=== PATIENT | female | born 1940 | race Caucasian/White ===

== ENCOUNTER 2017-12-28 09:48 | Emergency (ER) | payer OTHER, MEDICARE, SELFPAY ==
[2017-12-28 10:01] VITALS: BP 203/86; PULSE 80; RESP 15; TEMP 37; O2SAT 97
[2017-12-28 10:07] VITALS: BP 200/80; BP 203/85; PULSE 76; RESP 14
--- NOTE | 2017-12-28 10:08 | PC.NURSE ---
Pt complains of on / off generalized discomfort. No current complaints.
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
[2017-12-28 10:42] VITALS: BP 173/74; PULSE 74; RESP 14
== END 2017-12-28 11:02 | disposition home or self-care (01) ==
PROVIDERS: Emergency Provider Emergency Medicine
DX: S22.39XA Fracture of one rib, unspecified side, initial encounter for closed fracture (principal); S00.33XA Contusion of nose, initial encounter; I16.9 Hypertensive crisis, unspecified; V89.2XXA Person injured in unspecified motor-vehicle accident, traffic, initial encounter
CPT/HCPCS: 71101; 99283

== ENCOUNTER 2018-01-11 08:46 | Emergency (ER) | payer OTHER, SELFPAY ==
[2018-01-11 08:57] VITALS: BP 127/54; PULSE 60; RESP 13; TEMP 36.6; O2SAT 97
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
== END 2018-01-11 09:44 | disposition home or self-care (01) ==
PROVIDERS: Emergency Provider Emergency Medicine
DX: S22.41XD Multiple fractures of ribs, right side, subsequent encounter for fracture with routine healing (principal); V49.60XD Unspecified car occupant injured in collision with unspecified motor vehicles in traffic accident, subsequent encounter
CPT/HCPCS: 99282

== ENCOUNTER → 2018-04-26 14:07 | Outpatient (CLI) | payer OTHER, SELFPAY ==
[2018-04-26 14:20] LABS: RBC Urine None Seen (0-5/HPF)
[2018-04-26 14:48] LABS: Appearance Urine UA CLEAR; Bilirubin Urine UA NEGATIVE (NEGATIVE); Color Urine UA YELLOW; Glucose Urine UA NEGATIVE (Normal); Ketones Urine UA NEGATIVE (NEGATIVE); Leukocyte Esterase Urine UA TRACE (NEGATIVE); Nitrite Urine UA NEGATIVE (Negative); Occult Blood Urine UA NEGATIVE (Negative); Protein Urine UA NEGATIVE (Negative); Urobilinogen Urine UA 0.2 E.U./dL (0.2)
[2018-04-26 15:03] LABS: Amorphous Sediment Urine 1+; Bacteria Urine Few (2-10); Squamous Epithelial Cell Urine 0-1 /HPF; WBC Urine 5-10/HPF (0-5/HPF)
[2018-04-26 15:04] LABS: Culture Indicated Urine Specimen Cultured
== END ==
PROVIDERS: Visit Provider Surgery
DX: N34.3 Urethral syndrome, unspecified (principal); R30.0 Dysuria; R35.0 Frequency of micturition
CPT/HCPCS: 81001; 87086

== ENCOUNTER 2019-09-28 01:05 | Emergency (ER) | payer OTHER, SELFPAY ==
[2019-09-28 01:10] VITALS: BP 186/86; PULSE 85; RESP 15; TEMP 36.6; O2SAT 98
--- NOTE | 2019-09-28 02:47 | ED_ITS ---
HPI - Skin/Abscess/Foreign Bdy General Chief complaint: Skin/Abscess/Foreign Body Stated complaint: fibromyalgia nerve pain Time Seen by Provider: 09/28/19 02:43 Source: patient and family Mode of arrival: Family Vehicle History of Present Illness HPI narrative: This is an 78-year-old female who comes in with complaint of nerve pain on the right side of her face. Initially she calls it fibromyalgia but when asked if it may be called trigeminal neuralgia she states that is the proper name. Patient states that she has been having a flare for several days but it has becoming increasingly painful and she has not been able to control it with prednisone. She does take Ultram as well as baclofen and has carbamazepine twice daily as well. Patient also takes medication for blood pressure, a water pill and duloxetine. Patient states that the pain is on the right side of her face running across the bahai next to the nose and across the cheek. Patient states it is quite painful. She has tried her home medications with minimal imp rovement she has used topical lidocaine in the past but states it is too painful to touch. She has not had fevers. She states there is a little bit of tingling. She states she has had flares in the past but this is more intense than typical. She has not had any facial droop, no difficulty with speech, no weakness, numbness or other changes in her other extremities. No prior history of TIAs or strokes. She states the her floor pressure is high today but that she also has white coat syndrome in addition to her normal high blood pressure. She states she did take her regular medications at her normal times today. She states that she does not tolerate codeine, she also states that she does not tolerate other narcotics well. She states no history of CKD but did have bladder cancer in the past which she states is all checked out and resolved although she still self catheterizes. Related Data Home Medications Medication Instructions Recorded Confirmed carbamazepine 200 mg PO Q12H 12/28/17 12/28/17 clonidine HCl 0.1 mg PO BID 12/28/17 12/28/17 duloxetine 20 mg PO DAILY 12/28/17 12/28/17 furosemide 20 mg PO DAILY 12/28/17 12/28/17 gabapentin 1 dose PO DIRECTED 12/28/17 12/28/17 losartan 25 mg PO BID 12/28/17 12/28/17 Previous Rx's Medication Instructions Recorded tramadol 50 mg PO Q6H PRN #20 tab 12/28/17 oxcarbazepine 300 mg PO BID #60 tab 09/28/19 Allergies Allergy/AdvReac Type Severity Reaction Status Date / Time codeine Allergy Unknown Verified 12/28/17 10:30 Sulfa (Sulfonamide Allergy Unknown Verified 12/28/17 10:31 Antibiotics) Review of Systems Review of Systems ROS Unobtainable: All systems reviewed & are unremarkable except as noted in HPI and below Patient History Medical History (Updated 09/28/19 @ 03:13 by Dot Christensen DO) Hypertension (Acute) Trigeminal neuralgia (Acute) Social History Smoking Status: Never smoker Smoking Status: Never smoker alcohol intake frequency: 0-2 drinks per day Substance Use Type: does not use Exam Narrative Exam Narrative: GEN: well nourished, well appearing elderly female, alert and oriented x 3, patient appears to be in moderate distress. HEENT: Atraumatic, pupils are equal round reactive to light, extraocular movements are intact, nares are clear, TMs are clear with no fluid, there is no conjunctival pallor. Throat is clear without any exudates, erythema, tonsillar enlargement or uvular deviation, no erythema, no swelling, no vesicles or other skin changes. No facial droop. Clear speech. No dental changes. HEART: Regular rate and rhythm without murmur, clicks, rubs. LUNGS:Lungs clear to auscultation, no wheezes, rales, crackles, chest moves symmetrically ABD:bowel sounds normal, soft, non-tender, no guarding, rebound, rigidity, no masses noted, no hepatosplenomegaly :No CVA tenderness MSCL: Non-tender. NEURO:CN 2-12 intact, sensation normal SKIN: No erythema, no other skin changes noted. Initial Vital Signs Initial Vital Signs: Vital Signs Temperature 97.8 F 09/28/19 01:10 Pulse Rate 85 09/28/19 01:10 Respiratory Rate 15 09/28/19 01:10 Blood Pressure 186/86 H 09/28/19 01:10 Pulse Oximetry 98 09/28/19 01:10 Course Orders Ordered: Discontinued Medications Ketorolac Tromethamine (Toradol) 30 mg IM NOW ONE Stop: 09/28/19 03:07 Last Admin: 09/28/19 03:18 Dose: 30 mg Documented by: NIKI Vital Signs Vital signs: Vital Signs - 8 hr 09/28/19 01:10 09/28/19 03:12 09/28/19 03:58 Temperature 97.8 F Pulse Rate 85 80 74 Respiratory Rate 15 Blood Pressure 186/86 H Blood Pressure [Left Arm] 224/95 H 212/91 H Pulse Oximetry 98 97 96 09/28/19 04:30 Temperature Pulse Rate 79 Respiratory Rate 18 Blood Pressure 198/82 H Blood Pressure [Left Arm] Pulse Oximetry 98 MDM - Skin/Abscess/Foreign Bdy MDM Narrative Medical decision making narrative: Discussed with patient this is her typical location and she has had pain for many years. He states it does feel like a flu your foot more intense. She was not able to control her pain at home with her home medications and is somewhat restricted in terms of narcotics. She states she does have an allergy to Lyrica, she is on carbamazepine and does appear she takes gabapentin as well as tramadol without any relief of her symptoms. She does not believe she has any chronic kidney disease so we discussed doing a single dose of Toradol here and possibly short course of NSAIDs and if we can decrease her pain moderately she can use topical lidocaine which she has used in the past with good relief. Patient states Toradol did not make much improvement. We discussed were limited on our pain medication options based on patient's allergies. Patient and I discussed that she does take oxcarbamazepine 150 mg twice daily. Her daughter has of photo of patient's pill bottle on her phone so I am able to verify this dose. Discussed with patient we can increase her dosage to 300 mg twice daily which may be helpful for her. She is comfortable with this plan. She still has her tramadol and baclofen. Patient has gabapentin on her prior list but per her and her daughter she states that it was not helpful in the past and does not want a refill at this time. Discharge Plan Departure Patient Disposition: Home Clinical Impression: Trigeminal neuralgia Discharge Date/Time: 09/28/19 04:42 Instructions: DI for Trigeminal Neuralgia Activity Restrictions/Additional Instructions: Call to set up follow up with a primary care physician, if you cannot find one you can call the health human resources support specialist at [phone]. Continue your home medications as prescribed. You may increase your oxcarbazepine from 150mg to 300mg daily. Return to the ER for fevers, severe headaches, new vision changes, new difficulties with speech, numbness tingling or weakness, rapidly worsening symptoms, dental pain, new skin changes with blisters, redness or swelling or o ther new or concerning symptoms. Prescriptions: New oxcarbazepine 300 mg tablet 300 mg PO BID Qty: 60 RF: 0 No Action tramadol 50 mg tablet 50 mg PO Q6H PRN (Reason: pain) Qty: 20 RF: 0 clonidine HCl 0.1 mg Tablet 0.1 mg PO BID RF: 0 carbamazepine 200 mg Tablet 200 mg PO Q12H RF: 0 losartan 25 mg Tablet 25 mg PO BID RF: 0 gabapentin 300 mg Capsule 1 dose PO DIRECTED RF: 0 furosemide 20 mg Tablet 20 mg PO DAILY RF: 0 duloxetine 20 mg Capsule,Delayed Release(Dr/Ec) 20 mg PO DAILY RF: 0
[2019-09-28 03:12] VITALS: BP 224/95; PULSE 80; O2SAT 97
[2019-09-28] MEDS: KETOROLAC 60 MG/2 ML VIAL 30 MG IM (03:18)
[2019-09-28 03:58] VITALS: BP 212/91; PULSE 74; O2SAT 96
[2019-09-28 04:30] VITALS: BP 198/82; PULSE 79; RESP 18; O2SAT 98
== END 2019-09-28 04:42 | disposition home or self-care (01) ==
PROVIDERS: Emergency Provider Emergency Medicine
DX: G50.0 Trigeminal neuralgia (principal); I10 Essential (primary) hypertension
CPT/HCPCS: 96372; 99283; J1885

== ENCOUNTER 2019-11-11 22:08 | Emergency (ER) | payer OTHER, SELFPAY ==
[2019-11-11 22:25] VITALS: BP 200/95; PULSE 78; RESP 15; TEMP 36.9; O2SAT 98; BMI 26.8
--- NOTE | 2019-11-11 23:15 | ED.FALL ---
HPI - Fall General Chief Complaint: Fall Stated Complaint: GLF Time Seen by Provider: 11/11/19 22:13 Source: patient and EMS Mode of arrival: EMS Limitations: no limitations History of Present Illness HPI Narrative: Patient is an 78-year-old female. Not on anticoagulation. Arrived by EMS for injuries that she sustained when she states that she tripped at home and fell backwards and hit her head on the wall. She had no loss of consciousness. She does have a cut on the back of her head. Was covered in a bandage prior to arrival. She states that the fall was caused secondary to her losing her balance secondary to swelling in her right foot and right lower extremity. The swelling in the right foot and right lower extremity is not new. She has had some kidney issues in the past. She states that her primary doctor thinks that her swelling this secondary to that. She does urinate however she self caths several times a day secondary to urinary retention. She does use an Efraín bandage and keep her leg elevated most of the time. She has no neck pain. Related Data Home Medications Medication Instructions Recorded Confirmed carbamazepine 200 mg PO Q12H 12/28/17 12/28/17 clonidine HCl 0.1 mg PO BID 12/28/17 12/28/17 duloxetine 20 mg PO DAILY 12/28/17 12/28/17 furosemide 20 mg PO DAILY 12/28/17 12/28/17 gabapentin 1 dose PO DIRECTED 12/28/17 12/28/17 losartan 25 mg PO BID 12/28/17 12/28/17 Previous Rx's Medication Instructions Recorded tramadol 50 mg PO Q6H PRN #20 tab 12/28/17 oxcarbazepine 300 mg PO BID #60 tab 09/28/19 Allergies Allergy/AdvReac Type Severity Reaction Status Date / Time codeine Allergy Unknown Verified 12/28/17 10:30 Sulfa (Sulfonamide Allergy Unknown Verified 12/28/17 10:31 Antibiotics) Review of Systems Constitutional Constitutional: Denies fever(s) and Denies headache(s) Eyes Eyes: Denies change in vision ENT Ears, Nose, Mouth, and Throat: Denies headache(s) and Denies neck pain Cardiovascular Cardiovascular: Denies chest pain and Denies dyspnea Respiratory Respiratory: Denies dyspnea Musculoskeletal Musculoskeletal: Denies back pain and Denies neck pain Comments: Swelling to right lower extremity Integumentary/Breasts Comments: Cut to back ahead Neurologic Neurologic: Denies behavioral changes and Denies headache(s) Psychiatric Psychiatric: Denies behavioral changes Hematologic/Lymphatic Hematologic/Lymphatic: Denies easy bleeding and Denies easy bruising Patient History Medical History Hypertension (Acute) Trigeminal neuralgia (Acute) Social History Smoking Status: Never smoker Smoking Status: Never smoker alcohol intake frequency: 0-2 drinks per day Substance Use Type: does not use Exam Initial Vital Signs Initial Vital Signs: Vital Signs Temperature 98.5 F 11/11/19 22:25 Pulse Rate 78 11/11/19 22:25 Respiratory Rate 15 11/11/19 22:25 Blood Pressure 200/95 H 11/11/19 22:25 Pulse Oximetry 98 11/11/19 22:25 Const General: cooperative, healthy appearing, comfortable and well developed Limitations: mental status not altered HENMT Head: normal to inspection and normocephalic Back/Spine/Pelvis Back: No CVA tenderness Cervical Spine: No cervical spasm and No cervical spinal tenderness Skin Other: 3 cm laceration occipital region of scalp Extrem Other: Patient with right lower extremity 2+ swelling from the knee to the foot Psych Appearance: grossly normal and well kempt Procedures Laceration Repair Laceration 1: Site: scalp Size (cm): 3 Description: linear Depth: simple, single layer Local Anesthetic: lidocaine 1% and with bicarb Amount of anesthesia used (mL): 5 Pre-repair: irrigated extensively Skin layer closed with: dereje (Three) Scores GCS Rosy coma scale eye opening: Spontaneous Rosy coma scale verbal response: Orientated Rosy coma scale motor response: Obey commands Rosy coma scale total score: 15 Nexus Score for C-Spine Focal Neurologic deficit present: No Midline spinal tenderness present: No Altered level of conciousness present: No Intoxication present: No Distracting Injury Present: No Nexus Criteria for C-spine: 0 Course Orders Ordered: Discontinued Medications Lidocaine/Sodium Bicarbonate (Buffered Lidocaine 10 Ml Syr) 10 ml INJ NOW ONE Stop: 11/11/19 23:16 Last Admin: 11/11/19 23:19 Dose: 10 ml Documented by: COLTON Vital Signs Vital signs: Vital Signs - 8 hr 11/11/19 22:25 11/11/19 23:21 11/11/19 23:34 Temperature 98.5 F Pulse Rate 78 77 78 Respiratory Rate 15 18 15 Blood Pressure 200/95 H 189/78 H Blood Pressure [Right Arm] 189/78 H Pulse Oximetry 98 97 97 MDM - Fall MDM Narrative Medical decision making narrative: Patient not on anticoagulation. She is alert oriented x3. She has no neck pain. Scalp laceration was closed as described above. Feel we can hold on radiologic studies. She was given care instructions return precautions with regard to the laceration. The swelling in her right lower extremity is not new. Had a discussion with her and her daughter bedside regarding this. Stated that we could do nothing in the emergency department and have her continue to take all of her medications and keep her leg elevated use the Efraín bandage. Also offered that we could do workup to include laboratory in potentially radiologic studies. They opted not to have anything done here in the emergency department. Will have her follow-up with her primary provider. No other injuries found on the exam reported by the patient. She expressed understanding and agreement. Discharge Plan Departure Patient Disposition: Home Clinical Impression: Peripheral edema Laceration of scalp Qualifiers: Encounter type: initial encounter Qualified Code(s): S01.01XA - Laceration without foreign body of scalp, initial encounter Fall Qualifiers: Encounter type: initial encounter Qualified Code(s): W19.XXXA - Unspecified fall, initial encounter Discharge Date/Time: 11/11/19 23:35 Instructions: DI for Laceration Repair -- Martha, How to Prevent Falls Activity Restrictions/Additional Instructions: You can shower like normal. The dereje do need to be removed in 7-10 days. Expect some oozing from the cut however if it starts to bleed please return to the emergency department. Recommend that you keep your right leg elevated as much as possible. Continue all of your medications as directed. Contact your primary provider for follow-up. Prescriptions: No Action tramadol 50 mg tablet 50 mg PO Q6H PRN (Reason: pain) Qty: 20 RF: 0 clonidine HCl 0.1 mg Tablet 0.1 mg PO BID RF: 0 carbamazepine 200 mg Tablet 200 mg PO Q12H RF: 0 losartan 25 mg Tablet 25 mg PO BID RF: 0 gabapentin 300 mg Capsule 1 dose PO DIRECTED RF: 0 furosemide 20 mg Tablet 20 mg PO DAILY RF: 0 duloxetine 20 mg Capsule,Delayed Release(Dr/Ec) 20 mg PO DAILY RF: 0 oxcarbazepine 300 mg tablet 300 mg PO BID Qty: 60 RF: 0
[2019-11-11] MEDS: LIDO 1%/SOD BICARB 8.4% (10ML) 10 ML SYRINGE INJ (23:19)
[2019-11-11 23:21] VITALS: BP 189/78; PULSE 77; RESP 18; O2SAT 97
[2019-11-11 23:34] VITALS: BP 189/78; PULSE 78; RESP 15; O2SAT 97
== END 2019-11-11 23:35 | disposition home or self-care (01) ==
PROVIDERS: Emergency Provider Emergency Medicine
DX: S01.01XA Laceration without foreign body of scalp, initial encounter (principal); R60.9 Edema, unspecified; W01.198A Fall on same level from slipping, tripping and stumbling with subsequent striking against other object, initial encounter
CPT/HCPCS: 12002; 99283

== ENCOUNTER 2019-11-22 11:53 | Emergency (ER) | payer OTHER, SELFPAY ==
[2019-11-22 12:20] VITALS: BP 185/80; PULSE 66; RESP 13; TEMP 36.5; O2SAT 96
--- NOTE | 2019-11-22 12:54 | ED.EXTPRO ---
HPI - Extremity Problem General Chief complaint: Extremity Problem,Nontraumatic Stated complaint: humza cherry, swollen legs Time Seen by Provider: 11/22/19 12:52 Source: patient Mode of arrival: Wheelchair History of Present Illness HPI Narrative: CC: Peripheral edema HPI: The patient is an 78-year-old female who was seen in Dr. Arias's office and sent to the emergency department to be evaluated for progressive swelling of her extremities. He states that normally she does not have swelling of her legs. He was worried that the patient may be developing congestive heart failure cardiac problems or kidney problems and center to the emergency department. He states that the patient self caths herself for reported neurogenic bladder. The patient in completely empties her bladder and cast herself 2-3 times per day. The patient since the [place] it crisis developed has been living with her daughter. She normally lives in [facility]. The patient has developed progressive swelling of her legs right greater than the left. The patient denies that she has had any increased shortness of breath cough chest pain. She was initially on 20 mg of Lasix which was increased to 40 mg orally and then placed on potassium. The daughter and patient states that she has been drinking plenty of fluids. The question is whether not the patient is drinking more fluid than she is urinating from the diuretic gradually accumulating more fluid in her legs. She was advised that the legs did not swell symmetrically. The patient admits to a history of hypertension but denies a history of diabetes mellitus congestive heart failure myocardial infarction and COPD. The patient is a former smoker and drinker ox 1 periodically does not use any drugs. Related Data Home Medications Medication Instructions Recorded Confirmed carbamazepine 200 mg PO Q12H 12/28/17 12/28/17 clonidine HCl 0.1 mg PO BID 12/28/17 12/28/17 duloxetine 20 mg PO DAILY 12/28/17 12/28/17 furosemide 20 mg PO DAILY 12/28/17 12/28/17 gabapentin 1 dose PO DIRECTED 12/28/17 12/28/17 losartan 25 mg PO BID 12/28/17 12/28/17 Previous Rx's Medication Instructions Recorded tramadol 50 mg PO Q6H PRN #20 tab 12/28/17 oxcarbazepine 300 mg PO BID #60 tab 09/28/19 furosemide [Lasix] 20 mg PO DAILY #30 tab 11/22/19 potassium chloride [Klor-Con] 20 meq PO DAILY #20 each 11/22/19 Allergies Allergy/AdvReac Type Severity Reaction Status Date / Time codeine Allergy Unknown Verified 12/28/17 10:30 Sulfa (Sulfonamide Allergy Unknown Verified 12/28/17 10:31 Antibiotics) Review of Systems Review of Systems Narrative: REVIEW OF SYSTEMS: CONSTITUTIONAL: The patient denies any fever chills or sweats. She complains that she is developed progressively worsening swelling of her legs and ankles. NEUROLOGICAL: She denies any headache numbness tingling paresthesias anesthesia is paresis or paralysis. EENT: She has had no dysphagia or sore throat. CARDIO-PULMONARY: She denies any chest pain cough shortness of breath palpitations or dizziness. GASTROINTESTINAL: She denies any abdominal pain nausea vomiting diarrhea. GENITAL URINARY: She has a neurogenic bladder and casts or self. MUSCULOSKELETAL/ RHEUMATOLOGICAL: She has had no increased back pain. Patient History Medical History Hypertension (Acute) Trigeminal neuralgia (Acute) Social History Smoking Status: Never smoker Smoking Status: Never smoker alcohol intake frequency: 0-2 drinks per day Substance Use Type: does not use Exam Narrative Exam Narrative: PHYSICAL EXAM: CONSTITUTIONAL: Awake, Alert, Oriented, Coherent, Cooperative in NAD. Does not appear toxic or ill. HEAD: AT/NC EENT: PERRL, FROM of eyes, no discharge, no nystagmus EARS:No drainage from the ears, Tympanic membranes intact bilaterally, clear EAC MOUTH: The patient is wearing a mask. NECK: Supple, no obvious JVD, Trachea is midline without stridor, no palpable LN. SPINE: Palpationof the cervical, Thoracic, Lumbar or Sacral spine reveals no gross deformity or tenderness. No CVA tenderness. Her back is kyphotic THORAX: No deformity, retractions, chest wall tenderness. LUNGS: Clear, symmetrical breath sounds without respiratory distress. HEART: Normal heart tones, regular rhythm and rate without murmur. ABDOMEN: Soft, non-tender, normal bowel sounds without guarding, rebound, rigidity or palpable mass. EXTREMITIES: The patient has asymmetrical swelling of her legs. The right leg is much more swollen than the left leg. She has a definite 1+ may be 2+ pitting edema of the right leg and trace edema of the left leg. There is no calf tenderness on palpation. SKIN: No rash, bruising, petechiae or purpura. NEURO: Awake, alert, oriented, conversive, cranial nerves II-XII are symmetrical , moves all 4 extremities and is ambulatory. Initial Vital Signs Initial Vital Signs: Vital Signs Temperature 97.7 F 11/22/19 12:20 Pulse Rate 66 11/22/19 12:20 Respiratory Rate 13 11/22/19 12:20 Blood Pressure 185/80 H 11/22/19 12:20 Pulse Oximetry 96 11/22/19 12:20 Course Course Course Narrative: 1335: The patient's EKG reveals a sinus rhythm with a first-degree AV block. Her OH interval is 234 millisecond. Ventricular rate is 66. The patient has left ventricular hypertrophy by voltage criteria. The patient has nonspecific ST segment changes. T-waves are biphasic in V1. She has a significant left axis deviation. She has biphasic T-waves in leads V1. There are no acute diagnostic ST segment changes to suggest ischemia or injury. 1441 the patient's troponin and BNP are within normal limits. The patient self caths herself in her urine reveals that she has back to urea but she does not have any symptoms of urinary tract infection. The patient's chest x-ray reveals prominent pulmonary vascular markings. Probable mild atelectasis in the left lung base no significant pleural effusions. My review of the patient's chest x-ray does not reveal congestive heart failure or pulmonary edema. The plan is to discharge the patient on 40 mg of Lasix per day with 20 mEq of potassium per day when she is taking the Lasix. As long as her legs are pitting she takes 40 mg per day. When her legs are not pitting she can reduce the Lasix to 20 mg per day. However she must limit her total fluid intake to a maximum of 1500 cc per day. Orders Ordered: ED Orders 11/22/19 12:54 EKG-12 Lead Stat 11/22/19 12:56 XR chest 2V Stat 11/22/19 13:10 Urinalysis and Microscopic Stat Urine Culture Stat 11/22/19 13:16 Complete Blood Count AUTO DIFF Stat Comprehensive Metabolic Panel Stat NT-proBNP (BNP-Adult 18+) Stat Troponin & CK Cardiac Panel Stat Discontinued Medications Furosemide (Lasix) 60 mg IV NOW ONE Stop: 11/22/19 13:42 Last Admin: 11/22/19 14:20 Dose: 60 mg Documented by: MARGARET Vital Signs Vital signs: Vital Signs - 8 hr 11/22/19 12:20 Temperature 97.7 F Pulse Rate 66 Respiratory Rate 13 Blood Pressure 185/80 H Pulse Oximetry 96 MDM - Extremity (Nontraumatic) Lab Data Result diagrams: 11/22/19 13:16 11/22/19 13:16 Labs: Lab Results 11/22/19 11/22/19 11/22/19 Range/Units 13:10 13:16 13:16 WBC 6.6 (4.5-11.0) X10^3/uL RBC 4.09 (4.0-5.2) X10^6/uL Hgb 12.8 (12.0-16.0) g/dL Hct 37.9 (36-46) % MCV 92.7 (80-100) fL MCH 31.3 (26-34) PG MCHC 33.8 (30-36) % RDW 14.4 (11.6-14.8) % Plt Count 388 (150-400) X10^3/uL Neut % (Auto) 63.7 (50-75) % Lymph % (Auto) 22.1 L (25-40) % [place] % (Auto) 10.8 (3-14) % Eos % (Auto) 2.1 (2-4) % Baso % (Auto) 1.3 (0-2) % Neut # (Auto) 4200 (9272-3045) /uL Lymph # (Auto) 1400 (5205-2054) /uL [place] # (Auto) 700 (0-900) /uL Eos # (Auto) 100 (0-450) /uL Baso # (Auto) 100 (0-100) /uL Sodium 133 L (137-145) mmol/L Potassium 3.8 (3.4-5.1) mmol/L Chloride 95 L (98-107) mmol/L Carbon Dioxide 31 (22-32) mmol/L BUN 16 (7-17) mg/dL Creatinine 0.78 (0.52-1.04) mg/dL Estimated GFR > 60.0 (>60) mL/min BUN/Creatinine Ratio 20.5 (6-22) Glucose 90 (80-110) mg/dL Calcium 9.8 (8.4-10.2) mg/dL Total Bilirubin 0.5 (0.2-1.3) mg/dL AST 27 (14-36) IU/L ALT 15 (<35) IU/L Alkaline Phosphatase 102 (38-126) U/L Total Creatine Kinase 45 (30-135) U/L CK-MB (CK-2) TNP CK-MB (CK-2) Rel Index TNP Troponin I 0.013 (0.01-0.034) ng/mL NT-Pro-B Natriuret Pep 293 (<450) pg/mL Total Protein 7.3 (6.3-8.2) g/dL Albumin 4.1 (3.5-5.0) g/dL Globulin 3.2 (1.7-4.1) g/dL Albumin/Globulin Ratio 1.3 (1.0-2.8) Urine Color Yellow Urine Appearance Cloudy Urine pH 7.0 (4.5-8.0) Ur Specific [place] 1.010 (1.000-1.035) Urine Protein Negative (Negative) Urine Glucose (UA) Negative (Negative) g/dL Urine Ketones Negative (NEGATIVE) Urine Occult Blood Negative (Negative) Urine Nitrate Negative (Negative) Urine Bilirubin Negative (NEGATIVE) Urine Urobilinogen 0.2 (0.2) E.U./dL Ur Leukocyte Esterase Negative (NEGATIVE) Urine RBC None seen (0-5/HPF) Urine WBC 5-10/hpf H (0-5/HPF) Ur Squamous Epith Cells 1-5 /hpf (0-5/HPF) Amorphous Sediment 1+ Urine Bacteria Many (>30) H (None) Ur Culture Indicated? Specimen cultured Discharge Plan Departure Patient Disposition: Home Clinical Impression: Peripheral edema Discharge Date/Time: 11/22/19 15:03 Instructions: DI for Peripheral Edema -- Bilateral Activity Restrictions/Additional Instructions: 1. Follow-up with a primary care physician.. You need to be rechecked in 48-72 hours. 2. While your legs are swollen and pitting you take 40 mg of Lasix per day. When your legs are not as swollen as they are now and do not hit you can return to taking 20 mg of Lasix per day. 3. While taking 40 mg of Lasix per day take the potassium supplement along with the medication. 4. You need to keep your legs elevated as much as possible as her at or above the level of your heart whenever possible. 5. You must limit your total fluid intake for the day including things like T water juices soup broths to a total of 1500 cc per day. If you are drinking more fluid than your urine output you will not lose fluid and her legs will remains swollen or swell more. Prescriptions: New potassium chloride [Klor-Con] 20 mEq packet 20 meq PO DAILY Qty: 20 RF: 0 furosemide [Lasix] 20 mg tablet 20 mg PO DAILY Qty: 30 RF: 0 No Action tramadol 50 mg tablet 50 mg PO Q6H PRN (Reason: pain) Qty: 20 RF: 0 clonidine HCl 0.1 mg Tablet 0.1 mg PO BID RF: 0 carbamazepine 200 mg Tablet 200 mg PO Q12H RF: 0 losartan 25 mg Tablet 25 mg PO BID RF: 0 gabapentin 300 mg Capsule 1 dose PO DIRECTED RF: 0 furosemide 20 mg Tablet 20 mg PO DAILY RF: 0 duloxetine 20 mg Capsule,Delayed Release(Dr/Ec) 20 mg PO DAILY RF: 0 oxcarbazepine 300 mg tablet 300 mg PO BID Qty: 60 RF: 0
--- NOTE | 2019-11-22 12:56 | DI.RAD.S_ITS ---
PROCEDURE: XR CHEST 2V INDICATIONS: progressive peripheral edema TECHNIQUE: 2 views of the chest were acquired. COMPARISON: [facility], CR, ABDOMEN ACUTE SERIES, 03/13/2014, 11:01. [facility], CR, XR RIBS RT MIN 3V W CXR 1V, 12/28/2017, 10:17. FINDINGS: Surgical changes and devices: None. Lungs and pleura: Mild hazy opacity at the left lung base. Mild prominence of the pulmonary markings bilaterally similar to the 2014 CXR. No significant pleural effusions or pneumothorax. Mediastinum: Mediastinal contours are normal. Heart size is normal. Bones and chest wall: No suspicious bony abnormalities. Mild undulation of the right inferior ribs due to prior fractures. Soft tissues appear unremarkable. IMPRESSION: Prominent pulmonary vasculature markings. Probable mild atelectasis at the left lung base. No significant pleural effusion. Dictated by: Angel Vee M.D. on 11/22/2019 at 13:28 Approved by: Angel Vee M.D. on 11/22/2019 at 13:31
[2019-11-22 13:26] LABS: Add Manual Diff / Slide Review NO; Basophils Absolute Auto 100 /uL (0-100); Basophils Percent Auto 1.3 % (0-2); Eosinophils Absolute Auto 100 /uL (0-450); Eosinophils Percent Auto 2.1 % (2-4); Hematocrit 37.9 % (36-46); Hemoglobin 12.8 g/dL (12.0-16.0); Lymphocytes Absolute Auto 1400 /uL (1100-4500); Lymphocytes Percent Auto 22.1 % (25-40); Mean Corpuscular HGB Conc 33.8 % (30-36); Mean Corpuscular Hemoglobin 31.3 PG (26-34); Mean Corpuscular Volume 92.7 fL (80-100); Monocytes Absolute Auto 700 /uL (0-900); Monocytes Percent Auto 10.8 % (3-14); Neutrophils Absolute Auto 4200 /uL (1500-7000); Neutrophils Percent Auto 63.7 % (50-75); Platelet Count 388 X10^3/uL (150-400); Red Blood Cell Count 4.09 X10^6/uL (4.0-5.2); Red Cell Distribution Width 14.4 % (11.6-14.8); White Blood Cell Count 6.6 X10^3/uL (4.5-11.0)
[2019-11-22 13:38] LABS: Alanine Aminotransferase 15 IU/L (<35); Albumin 4.1 g/dL (3.5-5.0); Albumin Globulin Ratio 1.3 (1.0-2.8); Alkaline Phosphatase 102 U/L (38-126); Aspartate Aminotransferase 27 IU/L (14-36); BUN Creatinine Ratio 20.5 (6-22); Bilirubin Total 0.5 mg/dL (0.2-1.3); Blood Urea Nitrogen 16 mg/dL (7-17); Calcium 9.8 mg/dL (8.4-10.2); Carbon Dioxide 31 mmol/L (22-32); Chloride 95 mmol/L (98-107); Creatine Kinase 45 U/L (30-135); Estimated Glomerular Filt Rate > 60.0 mL/min (>60); Globulin 3.2 g/dL (1.7-4.1); Glucose 90 mg/dL (80-110); HEMOLYSIS < 15 (0-50); Potassium 3.8 mmol/L (3.4-5.1); Sodium 133 mmol/L (137-145); Total Protein 7.3 g/dL (6.3-8.2)
[2019-11-22 13:49] LABS: RBC Urine None Seen (0-5/HPF)
[2019-11-22 13:50] LABS: NT-proBNP (BNP-Adult 18+) 293 pg/mL (<450); Troponin I 0.013 ng/mL (0.01-0.034)
[2019-11-22 13:51] LABS: Appearance Urine UA CLOUDY; Bilirubin Urine UA NEGATIVE (NEGATIVE); Color Urine UA YELLOW; Glucose Urine UA NEGATIVE (Negative); Ketones Urine UA NEGATIVE (NEGATIVE); Leukocyte Esterase Urine UA NEGATIVE (NEGATIVE); Nitrite Urine UA NEGATIVE (Negative); Occult Blood Urine UA NEGATIVE (Negative); Protein Urine UA NEGATIVE (Negative); Urobilinogen Urine UA 0.2 E.U./dL (0.2)
[2019-11-22 14:12] LABS: Squamous Epithelial Cell Urine 1-5 /HPF (0-5/HPF); WBC Urine 5-10/HPF (0-5/HPF)
[2019-11-22 14:13] LABS: Amorphous Sediment Urine 1+; Bacteria Urine Many (>30); Culture Indicated Urine Specimen Cultured
[2019-11-22] MEDS: FUROSEMIDE 100 MG/10 ML VIAL 60 MG IV (14:20)
== END 2019-11-22 15:03 | disposition home or self-care (01) ==
PROVIDERS: Emergency Provider Emergency Medicine
DX: R60.0 Localized edema (principal); I10 Essential (primary) hypertension
CPT/HCPCS: 36415; 71046; 80053; 81001; 82550; 83880; 84484; 85025; 87077; 87086; 87186; 93005; 96374; 99284; J1940

== ENCOUNTER → 2019-12-23 16:48 | Outpatient (CLI) | payer OTHER, SELFPAY ==
[2019-12-23 17:40] LABS: BUN Creatinine Ratio 19.8 (6-22); Blood Urea Nitrogen 18 mg/dL (7-17); Carbon Dioxide 30 mmol/L (22-32); Chloride 97 mmol/L (98-107); Estimated Glomerular Filt Rate 59.3 mL/min (>60); Glucose 98 mg/dL (80-110); HEMOLYSIS < 15 (0-50); Potassium 4.1 mmol/L (3.4-5.1); Sodium 134 mmol/L (137-145)
== END ==
PROVIDERS: PCP Family Medicine; Referring Provider Family Medicine; Visit Provider Family Medicine
DX: R60.9 Edema, unspecified (principal)
CPT/HCPCS: 36415; 80048

== ENCOUNTER → 2019-12-26 08:21 | Outpatient (CLI) | payer OTHER, SELFPAY ==
[2019-12-26 08:27] LABS: Bacteria Urine None Seen
[2019-12-26 08:48] LABS: Appearance Urine UA CLOUDY; Bilirubin Urine UA NEGATIVE (NEGATIVE); Color Urine UA YELLOW; Glucose Urine UA NEGATIVE (Negative); Ketones Urine UA NEGATIVE (NEGATIVE); Leukocyte Esterase Urine UA 3+ (NEGATIVE); Nitrite Urine UA NEGATIVE (Negative); Occult Blood Urine UA 2+ (Negative); Protein Urine UA 2+ (Negative); Urobilinogen Urine UA 0.2 E.U./dL (0.2)
[2019-12-26 08:54] LABS: Culture Indicated Urine Specimen Cultured; RBC Urine >100/HPF (0-5/HPF); WBC Urine >100/HPF (0-5/HPF)
== END ==
PROVIDERS: PCP Family Medicine; Referring Provider Family Medicine; Visit Provider Family Medicine
DX: R30.0 Dysuria (principal)
CPT/HCPCS: 81001; 87077; 87086; 87186

== ENCOUNTER → 2020-10-08 14:20 | Outpatient (CLI) | payer OTHER, SELFPAY ==
[2020-10-08 14:52] LABS: Appearance Urine UA CLOUDY; Bilirubin Urine UA NEGATIVE (NEGATIVE); Color Urine UA YELLOW; Glucose Urine UA NEGATIVE (Negative); Ketones Urine UA NEGATIVE (NEGATIVE); Leukocyte Esterase Urine UA 3+ (NEGATIVE); Nitrite Urine UA POSITIVE (Negative); Occult Blood Urine UA 2+ (Negative); Protein Urine UA 1+ (Negative); Specific Gravity Urine UA 1.015 (1.000-1.035); Urobilinogen Urine UA 0.2 E.U./dL (0.2)
[2020-10-08 14:54] LABS: pH Urine UA 6.5 (4.5-8.0)
[2020-10-08 14:57] LABS: RBC Urine 5-10/HPF (0-5/HPF)
[2020-10-08 14:58] LABS: Bacteria Urine Many (>30); Culture Indicated Urine Specimen Cultured; WBC Urine 30-100/HPF (0-5/HPF)
== END ==
PROVIDERS: PCP Family Medicine; Referring Provider Family Medicine; Visit Provider Family Medicine
DX: R35.0 Frequency of micturition (principal); R39.15 Urgency of urination
CPT/HCPCS: 81001; 87077; 87086; 87186

== ENCOUNTER 2020-12-06 15:58 | Emergency (ER) | payer OTHER, SELFPAY ==
[2020-12-06 16:05] VITALS: BP 186/101; PULSE 81; RESP 15; TEMP 36.6; O2SAT 97; BMI 23.8
--- NOTE | 2020-12-06 18:10 | ED.EXTPRO ---
HPI - Extremity Problem General Chief complaint: Extremity Problem,Nontraumatic Stated complaint: Red Patch on Lower Lt Leg, Swollen Legs Time Seen by Provider: 12/06/20 18:04 Source: patient Mode of arrival: Wheelchair Limitations: no limitations Related Data Previous Rx's Medication Instructions Recorded aspirin 81 mg tablet,delayed 81 mg PO DAILY #90 tab 12/23/19 release potassium chloride 10 mEq See Rx Instructions PO DAILY #180 05/23/20 tablet,extended release tab oxcarbazepine 300 mg tablet 450 mg PO BID #270 tab 06/11/20 furosemide 20 mg tablet 40 mg PO DAILY #180 tab 08/14/20 baclofen 10 mg tablet 10 mg PO TID #270 tab 09/19/20 losartan 25 mg tablet 25 mg PO BID #90 tab 09/26/20 ciprofloxacin HCl 500 mg tablet 500 mg PO BID #14 tab 10/09/20 tramadol 50 mg tablet 50 mg PO BEDTIME PRN #30 tab 10/15/20 Allergies Allergy/AdvReac Type Severity Reaction Status Date / Time codeine Allergy Unknown Verified 12/06/20 16:06 Sulfa (Sulfonamide Allergy Unknown Verified 12/06/20 16:06 Antibiotics) Patient History Medical History (Updated 02/19/20 @ 14:45 by Juanita Herrera DO) Aortic stenosis Foot fracture, left Hypertension Neurogenic bladder Sciatica Trigeminal neuralgia Surgical History History of bowel resection History of carpal tunnel surgery History of hip replacement Social History Smoking Status: Never smoker Smoking Status: Never smoker alcohol intake frequency: holidays/special occasions only Substance Use Type: does not use Exam Initial Vital Signs Initial Vital Signs: Vital Signs Temperature 97.9 F 12/06/20 16:05 Pulse Rate 81 12/06/20 16:05 Respiratory Rate 15 12/06/20 16:05 Blood Pressure 186/101 H 12/06/20 16:05 Pulse Oximetry 97 12/06/20 16:05 Course Vital Signs Vital signs: Vital Signs - 8 hr 12/06/20 16:05 Temperature 97.9 F Pulse Rate 81 Respiratory Rate 15 Blood Pressure 186/101 H Pulse Oximetry 97 Discharge Plan Departure Prescriptions: No Action aspirin [Adult Aspirin Regimen] 81 mg tablet,delayed release (DR/EC) 81 mg PO DAILY Qty: 90 RF: 0 potassium chloride [Klor-Con 10] 10 mEq tablet extended release See Rx Instructions PO DAILY Qty: 180 RF: 3 oxcarbazepine 300 mg tablet 450 mg PO BID Qty: 270 RF: 1 furosemide [Lasix] 20 mg tablet 40 mg PO DAILY Qty: 180 RF: 3 baclofen 10 mg tablet 10 mg PO TID Qty: 270 RF: 0 losartan 25 mg tablet 25 mg PO BID Qty: 90 RF: 1 ciprofloxacin HCl 500 mg tablet 500 mg PO BID Qty: 14 RF: 0 tramadol 50 mg tablet 50 mg PO BEDTIME PRN (Reason: pain) Qty: 30 RF: 0
[2020-12-06 20:19] VITALS: PULSE 81; O2SAT 97
[2020-12-06 20:20] VITALS: BP 180/74; PULSE 86; O2SAT 98
[2020-12-06 20:30] VITALS: BP 193/81; PULSE 79; O2SAT 97
== END 2020-12-06 21:43 | disposition left against medical advice (07) ==
PROVIDERS: Emergency Provider Emergency Medicine; PCP Family Medicine
CPT/HCPCS: 99281

== ENCOUNTER → 2020-12-09 11:12 | Outpatient (CLI) | payer OTHER, SELFPAY ==
[2020-12-09 11:59] LABS: Bacteria Urine None Seen
[2020-12-09 12:00] LABS: Add Manual Diff / Slide Review NO; Basophils Absolute Auto 100 /uL (0-100); Basophils Percent Auto 0.8 % (0-2); Eosinophils Absolute Auto 200 /uL (0-450); Eosinophils Percent Auto 2.3 % (2-4); Hematocrit 36.1 % (36-46); Hemoglobin 12.2 g/dL (12.0-16.0); Lymphocytes Absolute Auto 1200 /uL (1100-4500); Lymphocytes Percent Auto 18.5 % (25-40); Mean Corpuscular HGB Conc 33.8 % (30-36); Mean Corpuscular Hemoglobin 31.1 PG (26-34); Mean Corpuscular Volume 91.9 fL (80-100); Monocytes Absolute Auto 700 /uL (0-900); Monocytes Percent Auto 9.7 % (3-14); Neutrophils Absolute Auto 4600 /uL (1500-7000); Neutrophils Percent Auto 68.7 % (50-75); Platelet Count 309 X10^3/uL (150-400); Red Blood Cell Count 3.93 X10^6/uL (4.0-5.2); Red Cell Distribution Width 15.1 % (11.6-14.8); White Blood Cell Count 6.7 X10^3/uL (4.5-11.0)
[2020-12-09 12:06] LABS: Appearance Urine UA CLEAR; Bilirubin Urine UA NEGATIVE (NEGATIVE); Color Urine UA YELLOW; Glucose Urine UA NEGATIVE (Negative); Ketones Urine UA NEGATIVE (NEGATIVE); Leukocyte Esterase Urine UA NEGATIVE (NEGATIVE); Nitrite Urine UA NEGATIVE (Negative); Occult Blood Urine UA TRACE-INTACT (Negative); Protein Urine UA NEGATIVE (Negative); Specific Gravity Urine UA 1.015 (1.000-1.035); Urobilinogen Urine UA 0.2 E.U./dL (0.2)
[2020-12-09 12:10] LABS: Culture Indicated Urine Cult Not Indicated; RBC Urine 1-5/HPF (0-5/HPF); Squamous Epithelial Cell Urine 1-5 /HPF (0-5/HPF); WBC Urine 1-5/HPF (0-5/HPF); pH Urine UA 6.5 (4.5-8.0)
[2020-12-09 12:20] LABS: Alanine Aminotransferase 21 IU/L (<35); Albumin 4.2 g/dL (3.5-5.0); Albumin Globulin Ratio 1.4 (1.0-2.8); Alkaline Phosphatase 133 U/L (38-126); Aspartate Aminotransferase 30 IU/L (14-36); BUN Creatinine Ratio 25.7 (6-22); Bilirubin Total 0.4 mg/dL (0.2-1.3); Blood Urea Nitrogen 19 mg/dL (7-17); Calcium 9.9 mg/dL (8.4-10.2); Carbon Dioxide 29 mmol/L (22-32); Chloride 97 mmol/L (98-107); Estimated Glomerular Filt Rate > 60.0 mL/min (>60); Globulin 3.1 g/dL (1.7-4.1); Glucose 91 mg/dL (80-110); HEMOLYSIS < 15 (0-50); Potassium 4.7 mmol/L (3.4-5.1); Sodium 133 mmol/L (137-145); Total Protein 7.3 g/dL (6.3-8.2)
[2020-12-09 12:29] LABS: NT-proBNP (BNP-Adult 18+) 806 pg/mL (<450)
== END ==
PROVIDERS: PCP Family Medicine; Visit Provider Student in an Organized Health Care Education/Training Program
DX: N31.9 Neuromuscular dysfunction of bladder, unspecified (principal); R60.0 Localized edema
CPT/HCPCS: 36415; 80053; 81001; 83880; 85025

== ENCOUNTER → 2020-12-17 14:26 | Outpatient (CLI) | payer OTHER, SELFPAY ==
[2020-12-17 16:20] LABS: BUN Creatinine Ratio 31.8 (6-22); Blood Urea Nitrogen 28 mg/dL (7-17); Calcium 9.9 mg/dL (8.4-10.2); Carbon Dioxide 29 mmol/L (22-32); Chloride 100 mmol/L (98-107); Estimated Glomerular Filt Rate > 60.0 mL/min (>60); Glucose 79 mg/dL (80-110); HEMOLYSIS < 15 (0-50); Potassium 4.1 mmol/L (3.4-5.1); Sodium 137 mmol/L (137-145)
[2020-12-17 16:26] LABS: NT-proBNP (BNP-Adult 18+) 325 pg/mL (<450)
== END ==
PROVIDERS: PCP Family Medicine; Referring Provider Family Medicine; Visit Provider Family Medicine
DX: I10 Essential (primary) hypertension (principal); R79.89 Other specified abnormal findings of blood chemistry; R60.0 Localized edema
CPT/HCPCS: 36415; 80048; 83880

== ENCOUNTER 2020-12-17 21:35 | Emergency (ER) | payer OTHER, SELFPAY ==
[2020-12-17 21:39] VITALS: BP 142/65; PULSE 67; RESP 15; TEMP 36.6; O2SAT 97; BMI 23.3
--- NOTE | 2020-12-17 21:54 | DI.RAD.S_ITS ---
PROCEDURE: XR CHEST 1V INDICATIONS: near syncope TECHNIQUE: One view of the chest was acquired. COMPARISON: [facility], CR, XR CHEST 2V, 11/22/2019, 12:50. FINDINGS: Surgical changes and devices: None. Lungs and pleura: Lungs are mildly abnormal with a mild interstitial prominence perhaps reflecting prior smoking history. No pleural effusions or pneumothorax. Mediastinum: Mediastinal contours appear normal. Heart size is at or just above the upper limits of normal. Bones and chest wall: No suspicious bony lesions. Overlying soft tissues appear unremarkable. IMPRESSION: Heart size at or just above the upper limits of normal. Chronic mild interstitial prominence. No definite acute CHF or pneumonia found. Dictated by: Dawit Yi M.D. on 12/18/2020 at 8:28 Approved by: Dawit Yi M.D. on 12/18/2020 at 8:29
[2020-12-17 22:25] VITALS: BP 128/60; BP 138/63; BP 149/65
[2020-12-17 22:27] VITALS: BP 128/60; BP 138/63; BP 149/65; PULSE 70; PULSE 74; PULSE 75
[2020-12-17 22:49] LABS: Add Manual Diff / Slide Review NO; Basophils Absolute Auto 100 /uL (0-100); Basophils Percent Auto 0.9 % (0-2); Eosinophils Absolute Auto 200 /uL (0-450); Eosinophils Percent Auto 1.6 % (2-4); Hematocrit 34.6 % (36-46); Hemoglobin 11.6 g/dL (12.0-16.0); Lymphocytes Absolute Auto 900 /uL (1100-4500); Lymphocytes Percent Auto 9.1 % (25-40); Mean Corpuscular HGB Conc 33.4 % (30-36); Mean Corpuscular Hemoglobin 30.8 PG (26-34); Mean Corpuscular Volume 92.1 fL (80-100); Monocytes Absolute Auto 800 /uL (0-900); Monocytes Percent Auto 8.1 % (3-14); Neutrophils Absolute Auto 8000 /uL (1500-7000); Neutrophils Percent Auto 80.3 % (50-75); Platelet Count 299 X10^3/uL (150-400); Red Blood Cell Count 3.75 X10^6/uL (4.0-5.2); Red Cell Distribution Width 14.7 % (11.6-14.8)
[2020-12-17 22:54] LABS: Alanine Aminotransferase 18 IU/L (<35); Albumin Globulin Ratio 1.3 (1.0-2.8); Alkaline Phosphatase 123 U/L (38-126); Aspartate Aminotransferase 24 IU/L (14-36); BUN Creatinine Ratio 29.4 (6-22); Bilirubin Total 0.2 mg/dL (0.2-1.3); Blood Urea Nitrogen 30 mg/dL (7-17); Calcium 9.9 mg/dL (8.4-10.2); Carbon Dioxide 31 mmol/L (22-32); Chloride 101 mmol/L (98-107); Creatine Kinase 46 U/L (30-135); Estimated Glomerular Filt Rate 51.9 mL/min (>60); Glucose 138 mg/dL (80-110); HEMOLYSIS < 15 (0-50); Potassium 4.7 mmol/L (3.4-5.1); Sodium 137 mmol/L (137-145)
[2020-12-17 23:05] LABS: Troponin I 0.014 ng/mL (0.01-0.034)
[2020-12-17 23:32] VITALS: BP 160/69; PULSE 71; RESP 14; O2SAT 97
[2020-12-17 23:37] VITALS: BP 160/69; PULSE 76; RESP 15; O2SAT 96
[2020-12-18] VITALS: PULSE 71; RESP 11; O2SAT 98
[2020-12-18 00:30] VITALS: PULSE 75; RESP 17; O2SAT 98
--- NOTE | 2020-12-18 00:53 | ED.SYNCOPE ---
HPI - Syncope General Chief Complaint: Syncope Stated Complaint: Syncope Time Seen by Provider: 12/18/20 01:02 Source: patient, family (Daughter) and EMS Mode of arrival: EMS Limitations: no limitations History of Present Illness HPI narrative: This is an 80-year-old female comes emergency department with an episode of loss of consciousness on the toilet. Patient states she did not have any symptoms until right before she passed out. Patient states she was sitting on the toilet trying to urinate. She does self-catheterize but also urinates. Patient had some abdominal discomfort and felt nauseated and then lost consciousness. Her daughter was with her when this occurred. She states her mother complaint of abdominal discomfort and then her head went forward, her eyes ?bugged out? and patient was sort of mumbling afterwards. She did return to normal baseline. EMS states her pressure was 60 systolic initially but improved after 200 cc of fluid. Afterwards patient denies any additional symptoms. She denies any headache, neck or back pain, no chest pain or pressure, no abdominal pain. She denies any shortness of breath. She denies any black or bloody stools. She states she is trying to urinate she did have a bowel movement when this occurred and her daughter states it was not melanotic or hematochezia. Patient was told she may have a urine infection after a visit on the 09 of December but when they followed up they were told that her urine was negative. I do not have access to her recent urine culture. She has also had swelling in her lower extremities which is improving with increase in Lasix. As well as some mild redness of her lower extremities. Patient has not had fevers or other symptoms. She is on baclofen and ox carbamazepine for trigeminal neuralgia, she takes an aspirin daily, Lasix, potassium and losartan for blood pressure. Patient also had her tramadol recently refilled as well. Related Data Previous Rx's Medication Instructions Recorded aspirin 81 mg tablet,delayed 81 mg PO DAILY #90 tab 12/23/19 release potassium chloride 10 mEq See Rx Instructions PO DAILY #180 05/23/20 tablet,extended release tab furosemide 20 mg tablet 40 mg PO DAILY #180 tab 08/14/20 losartan 25 mg tablet 25 mg PO BID #90 tab 09/26/20 ciprofloxacin HCl 500 mg tablet 500 mg PO BID #14 tab 10/09/20 baclofen 10 mg tablet 10 mg PO TID #270 tab 12/12/20 oxcarbazepine 300 mg tablet 450 mg PO BID #270 tab 12/12/20 tramadol 50 mg tablet 50 mg PO BEDTIME PRN #30 tab 12/12/20 Allergies Allergy/AdvReac Type Severity Reaction Status Date / Time codeine Allergy Unknown Verified 12/09/20 11:37 Sulfa (Sulfonamide Allergy Unknown Verified 12/09/20 11:37 Antibiotics) Review of Systems Review of Systems ROS Unobtainable: All systems reviewed & are unremarkable except as noted in HPI and below Patient History Medical History Aortic stenosis Foot fracture, left Hypertension Neurogenic bladder Sciatica Trigeminal neuralgia Surgical History History of bowel resection History of carpal tunnel surgery History of hip replacement Social History Smoking Status: Never smoker Smoking Status: Never smoker alcohol intake frequency: holidays/special occasions only Substance Use Type: does not use Exam Narrative Exam Narrative: GEN: well nourished, well appearing elderly female, alert and oriented x 3, patient appears to be in mild distress. HEENT: Atraumatic, pupils are equal round reactive to light, extraocular movements are intact, nares are clear, facial droop noted. HEART: Regular rate and rhythm without murmur, clicks, rubs. Pulses are equal in upper and lower extremities LUNGS:Lungs clear to auscultation, no wheezes, rales, crackles, chest moves symmetrically, no tachypnea accessory muscle use. ABD:bowel sounds normal, soft, non-tender, non-distended, no guarding, rebound, rigidity, no masses noted, no hepatosplenomegaly, no pulsatile mass or bruit. :No CVA tenderness, MSCL: Non-tender, patient does have bilateral lower extremity swelling, she also has some faint erythema bilateral lower extremities. NEURO:CN 2-12 intact, sensation normal Initial Vital Signs Initial Vital Signs: Vital Signs Temperature 97.9 F 12/17/20 21:39 Pulse Rate 67 12/17/20 21:39 Respiratory Rate 15 12/17/20 21:39 Blood Pressure 142/65 H 12/17/20 21:39 Pulse Oximetry 97 12/17/20 21:39 Scores GCS Rosy coma scale eye opening: Spontaneous Rosy coma scale verbal response: Orientated Parshall coma scale motor response: Obey commands Rosy coma scale total score: 15 Course Orders Ordered: ED Orders 12/17/20 21:54 XR chest 1V Stat 12/17/20 22:35 Complete Blood Count AUTO DIFF Stat Comprehensive Metabolic Panel Stat Troponin & CK Cardiac Panel Stat Vital Signs Vital signs: Vital Signs - 8 hr 12/17/20 21:39 12/17/20 22:25 12/17/20 22:27 Temperature 97.9 F Pulse Rate 67 Pulse Rate [Orthostatic Lying] 70 Pulse Rate [Orthostatic Sitting] 75 Pulse Rate [Orthostatic Standing] 74 Respiratory Rate 15 Blood Pressure 142/65 H Blood Pressure [Orthostatic Lying] 128/60 128/60 Blood Pressure [Orthostatic Sitting] 138/63 138/63 Blood Pressure [Orthostatic Standing] 149/65 H 149/65 H Pulse Oximetry 97 12/17/20 23:32 12/17/20 23:37 12/18/20 00:00 Temperature Pulse Rate 71 76 71 Pulse Rate [Orthostatic Lying] Pulse Rate [Orthostatic Sitting] Pulse Rate [Orthostatic Standing] Respiratory Rate 14 15 11 L Blood Pressure 160/69 H 160/69 H Blood Pressure [Orthostatic Lying] Blood Pressure [Orthostatic Sitting] Blood Pressure [Orthostatic Standing] Pulse Oximetry 97 96 98 12/18/20 00:30 12/18/20 01:00 Temperature Pulse Rate 75 80 Pulse Rate [Orthostatic Lying] Pulse Rate [Orthostatic Sitting] Pulse Rate [Orthostatic Standing] Respiratory Rate 17 23 Blood Pressure Blood Pressure [Orthostatic Lying] Blood Pressure [Orthostatic Sitting] Blood Pressure [Orthostatic Standing] Pulse Oximetry 98 97 MDM - Syncope Lab Data Attestation: I reviewed the patient's lab results. Result diagrams: 12/17/20 22:35 12/17/20 22:35 Labs: Lab Results 12/17/20 12/17/20 Range/Units 22:35 22:35 WBC 10.0 (4.5-11.0) X10^3/uL RBC 3.75 L (4.0-5.2) X10^6/uL Hgb 11.6 L (12.0-16.0) g/dL Hct 34.6 L (36-46) % MCV 92.1 (80-100) fL MCH 30.8 (26-34) PG MCHC 33.4 (30-36) % RDW 14.7 (11.6-14.8) % Plt Count 299 (150-400) X10^3/uL Neut % (Auto) 80.3 H (50-75) % Lymph % (Auto) 9.1 L (25-40) % [place] % (Auto) 8.1 (3-14) % Eos % (Auto) 1.6 L (2-4) % Baso % (Auto) 0.9 (0-2) % Neut # (Auto) 8000 H (9393-7874) /uL Lymph # (Auto) 900 L (8716-3696) /uL [place] # (Auto) 800 (0-900) /uL Eos # (Auto) 200 (0-450) /uL Baso # (Auto) 100 (0-100) /uL Sodium 137 (137-145) mmol/L Potassium 4.7 (3.4-5.1) mmol/L Chloride 101 (98-107) mmol/L Carbon Dioxide 31 (22-32) mmol/L BUN 30 H (7-17) mg/dL Creatinine 1.02 (0.52-1.04) mg/dL Estimated GFR 51.9 L (>60) mL/min BUN/Creatinine Ratio 29.4 H (6-22) Glucose 138 H (80-110) mg/dL Calcium 9.9 (8.4-10.2) mg/dL Total Bilirubin 0.2 (0.2-1.3) mg/dL AST 24 (14-36) IU/L ALT 18 (<35) IU/L Alkaline Phosphatase 123 (38-126) U/L Total Creatine Kinase 46 (30-135) U/L CK-MB (CK-2) TNP CK-MB (CK-2) Rel Index TNP Troponin I 0.014 (0.01-0.034) ng/mL Total Protein 7.0 (6.3-8.2) g/dL Albumin 4.0 (3.5-5.0) g/dL Globulin 3.0 (1.7-4.1) g/dL Albumin/Globulin Ratio 1.3 (1.0-2.8) Imaging Data Chest x-ray: Radiologist's Impression: No acute pathology. ECG Data Attestation: I personally reviewed and interpreted this ECG as follows: Prior ECG tracings: available for review Interpretation: Sinus rhythm with first-degree AV block. Rate of 67, MT 228, QRS of 90 and QTC of 407. No acute ST elevation depression noted. Patient has prior EKG from 11/22/2019 which appears similar. MDM Narrative Medical decision making narrative: This is an 80-year-old female with witnessed likely syncopal episode. Patient was hypotensive initially for EMS but quickly improved after 200 cc of fluid back to the 110s and has been appropriate pressure here in the department. Orthostatics are negative. Her labs do not show any acute changes that would cause her syncope. Her EKG appears similar to priors and she has not had any persistent symptoms. Patient is requesting return home discussed return precautions with her and her daughter. She has had an increase in her Lasix recently and been offered tramadol and restarted it. Discharge Plan Departure Patient Disposition: Home Clinical Impression: Syncope Instructions: DI for Syncope in Adults (Fainting) Activity Restrictions/Additional Instructions: Follow up with your physician in the next several days. Continue home medications as prescribed. Please return for any recurrent symptoms, fevers, recurrent lightheadedness or passing out, chest pain, shortness of breath, abdominal pain or back pain, persistent vomiting, black or bloody stools, increasing redness in your extremities or other new or concerning symptoms. Prescriptions: No Action aspirin [Adult Aspirin Regimen] 81 mg tablet,delayed release (DR/EC) 81 mg PO DAILY Qty: 90 RF: 0 potassium chloride [Klor-Con 10] 10 mEq tablet extended release See Rx Instructions PO DAILY Qty: 180 RF: 3 furosemide [Lasix] 20 mg tablet 40 mg PO DAILY Qty: 180 RF: 3 losartan 25 mg tablet 25 mg PO BID Qty: 90 RF: 1 ciprofloxacin HCl 500 mg tablet 500 mg PO BID Qty: 14 RF: 0 baclofen 10 mg tablet 10 mg PO TID Qty: 270 RF: 0 oxcarbazepine 300 mg tablet 450 mg PO BID Qty: 270 RF: 1 tramadol 50 mg tablet 50 mg PO BEDTIME PRN (Reason: pain) Qty: 30 RF: 0 Referrals: Juanita Herrera DO [Primary Care Provider] -
[2020-12-18 01:00] VITALS: PULSE 80; RESP 23; O2SAT 97
== END 2020-12-18 01:38 | disposition home or self-care (01) ==
PROVIDERS: Emergency Provider Emergency Medicine; PCP Family Medicine
DX: R55 Syncope and collapse (principal); R10.9 Unspecified abdominal pain; R07.9 Chest pain, unspecified
CPT/HCPCS: 36415; 71045; 80053; 82550; 84484; 85025; 93005; 99283; 99284

== ENCOUNTER → 2021-01-07 09:05 | Outpatient (CLI) | payer OTHER, SELFPAY ==
--- NOTE | 2021-01-07 09:07 | DI.ECHO.S_ITS ---
[facility]---------+ [facility] +---------+ : : [address] : : : : [phone] : : : : Phone: [phone] Echocardiogram Report + + :Name: KIA KIRKLAND Study Date: 01/07/2021 Height: 57 in : :[facility] ReadingLocation: Weight: 110 lb : : Gender: Female BSA: 1.4 m2 : :: 1940 Age: 80 yrs BP: 128/65 mmHg: :Reason For Study: Edema : :Ordering Physician: ERENDIRA, : :CHANTAL Performed By: Long Schulz : :Referring: CHANTAL KRISHNA : + + Interpretation Summary Mild concentric left ventricular hypertrophy with ejection fraction 60-65%. Diastolic parameters suggest a pseudonormalization pattern, consistent with probable elevated filling pressures. Mildly dilated left atrium. Severe aortic stenosis. The peak aortic velocity is 4.2 m/sec. The aortic valve mean gradient is 46 mmHg. Mild mitral regurgitation. Procedure: A two-dimensional transthoracic echocardiogram with color flow and Doppler was performed. The study quality was technically adequate. There is no prior echocardiogram noted for this patient. The patient was in sinus rhythm with heart rates between 56-72 bpm during the exam. Left Ventricle: The left ventricle is normal in size. There is mild concentric left ventricular hypertrophy. The ejection fraction is estimated to be 60-65%. There are no focal wall motion abnormalities. Diastolic parameters suggest a pseudonormalization pattern, consistent with probable elevated filling pressures. Right Ventricle: The right ventricle is normal in size and function. Atria: The left atrium is mildly dilated. Right atrial size is normal. There is no Doppler evidence for an interatrial shunt. Mitral Valve: The mitral valve is normal in structure and function. There is mild mitral regurgitation. Aortic Valve: The aortic valve is severely calcified. The aortic valve is not well visualized. A bicuspid aortic valve cannot be excluded. There is severe aortic stenosis. The peak aortic velocity is 4.2 m/sec. The aortic valve mean gradient is 46 mmHg. The calculated aortic valve area is 0.6 cm2. No aortic regurgitation is present. Tricuspid Valve: The tricuspid valve is normal in structure and function. There is trace tricuspid regurgitation. Pulmonary artery pressures cannot be estimated because of the lack of a measurable TR jet velocity but the IVC suggests a CVP of around 3 mmHg. Pulmonic Valve: The pulmonic valve is normal in structure and function. There is no pulmonic valvular regurgitation. Great Vessels: The aortic root is normal size. The dimensions of the ascending aorta are normal. The IVC is of normal diameter and collapses greater than 50% with a sniff. This suggests a low right atrial pressure of 3 mm Hg. Pericardium/ Pleura There is no pericardial effusion. There is no pleural effusion. MMode/2D Measurements & Calculations LVIDd: 4.4 cm LVOT diam: 1.9 cm LVIDs: 2.8 cm Ao root diam: 3.0 cm FS: 35.8 % asc Aorta Diam: 3.0 cm IVSd: 1.3 cm LVPWd: 1.1 cm LV eaton. diameter/BSA (cm/m^2): 3.2 LV sys. diameter/BSA (cm/m^2): 2.0 LA A2 area: 25.8 cm2 RA long axis: 4.6 cm LA A4 area: 17.7 cm2 RA area: 14.5 cm2 LA length (vol): 5.8 cm RA vol: 39.0 ml LA vol: 67.4 ml RA : 27.9 ml/m2 LA vol index: 48.3 ml/m2 IVC diam: 2.0 cm RVD1 (basal): 3.1 cm TAPSE: 2.9 cm Doppler Measurements & Calculations Ao V2 max: 418.8 cm/sec LVOT Max Guillermo: 89.4 cm/sec Ao V2 mean: 327.7 cm/sec LV V1 max P.2 mmHg Ao max P.2 mmHg LV V1 VTI: 23.8 cm Ao mean P.8 mmHg LEODAN(I,D): 0.60 cm2 Ao V2 VTI: 116.4 cm LEODAN(V,D): 0.63 cm2 sev ratio: 0.20 LEODAN indexed to BSA (cm^2/m^2): 0.43 MV E max guillermo: 129.5 cm/sec PA V2 max: 129.4 cm/sec MV A max guillermo: 98.2 cm/sec PA V2 mean: 80.5 cm/sec MV E/A: 1.3 PA mean P.9 mmHg Med Peak E' Guillermo: 6.8 cm/sec PA pr(Accel): 47.9 mmHg E/E' med: 18.9 Lat Peak E' Guillermo: 6.3 cm/sec E/E' lat: 20.5 E/e' average: 19.7 MV dec time: 0.20 sec SV(LVOT): 70.1 ml Electronically signed by: Natacha Lane on [place] Physician:01/08/2021 10:54 AM
== END ==
PROVIDERS: PCP Family Medicine; Referring Provider Family Medicine; Visit Provider Family Medicine
DX: R60.0 Localized edema (principal); R79.89 Other specified abnormal findings of blood chemistry; I10 Essential (primary) hypertension
CPT/HCPCS: 93306

== ENCOUNTER 2021-09-18 10:48 | Inpatient (IN) | payer OTHER, SELFPAY ==
[2021-09-18] VITALS (13 sets, daily range): BP systolic 109–188; BP diastolic 45–84; PULSE 70–86; RESP 14–70; TEMP 36.4–36.9; O2SAT 95–99; BMI 23.8
--- NOTE | 2021-09-18 12:10 | ED.WOUNDLAC ---
HPI - Wound/Laceration General Chief Complaint: Wound/Laceration Stated Complaint: Worsening bottom sores T-7days Time Seen by Provider: 09/18/21 11:43 Source: patient and EMS Mode of arrival: EMS History of Present Illness HPI narrative: Patient is an 80-year-old female who has history of aortic stenosis, she is wheelchair-bound she has been living at home with her daughter for a few months. The daughter states that they has had intermittently sacral sores they do not have help at home. Daughter has been caring for her. The sores keep getting worse. She is having pain. Daughter states it is too much for her to do any longer. Patient has pain in her bottom but that is her only complaint. There has been no increased confusion she does not have dementia she does not have any increased weakness. She is noted to have right leg swelling. Daughter states that that leg occasionally swells she is on diuretic. It is also noted to be mildly red daughter unsure when that started. Related Data Home Medications Medication Instructions Recorded Confirmed diphenhydramine HCl 25 mg capsule 25 mg PO BEDTIME PRN 09/18/21 09/18/21 (Benadryl) oxcarbazepine 300 mg tablet 300 mg PO BID 09/18/21 09/18/21 Previous Rx's Medication Instructions Recorded furosemide 20 mg tablet (Lasix) 40 mg PO DAILY #180 tab 06/04/21 losartan 25 mg tablet 25 mg PO BID #180 tab 06/04/21 potassium chloride 10 mEq 20 meq PO DAILY #180 tab 06/04/21 tablet,extended release (Klor-Con) tramadol 50 mg tablet 50 mg PO BEDTIME PRN #30 tab 06/04/21 baclofen 10 mg tablet 10 mg PO TID #270 tab 06/10/21 Wheelchair #1 06/11/21 four wheeled walker #1 ea 06/11/21 Allergies Allergy/AdvReac Type Severity Reaction Status Date / Time codeine Allergy Unknown Verified 09/18/21 10:53 Sulfa (Sulfonamide Allergy Unknown Verified 09/18/21 10:53 Antibiotics) Review of Systems Review of Systems ROS Unobtainable: All systems reviewed & are unremarkable except as noted in HPI and below Patient History Medical History Aortic stenosis Foot fracture, left Hypertension Neurogenic bladder Sciatica Trigeminal neuralgia Surgical History History of bowel resection History of carpal tunnel surgery History of hip replacement Family History (Updated 09/18/21 @ 17:36 by Lee Freire DO) Mother Hypertension Father Hypertension Social History household members: children Smoking Status: Never smoker Smoking Status: Never smoker alcohol intake frequency: holidays/special occasions only Substance Use Type: does not use Exam Initial Vital Signs Initial Vital Signs: Vital Signs Temperature 98.4 F 09/18/21 10:51 Pulse Rate 70 09/18/21 10:51 Respiratory Rate 14 09/18/21 10:51 Blood Pressure 188/84 H 09/18/21 10:51 Pulse Oximetry 99 09/18/21 10:51 GENERAL: Alert 80-year-old femaleand in no acute distress. HEENT: Head atraumatic,EOMI, pupils reactive, face symmetric, moist mucous membranes CARDIOVASCULAR: Regular rate and rhythm without murmurs, rubs or gallops. RESPIRATORY: Breath sounds equal bilaterally, no wheezes rales or rhonchi. ABDOMEN: Soft, nontender. Normoactive bowel sounds all 4 quadrants. No guarding or rebound. EXTREMITIES: Normal range of motion, no clubbing or edema. Neurovascularly intact Right lower extremity swollen mildly erythematous NEUROLOGICAL: Pain O x3 no focal deficit SKIN: Multiple sacral and buttock wounds. 1 is midline with drainage, please see nursing notes Course Orders Ordered: ED Orders 09/18/21 12:12 Consult to [employer] - Multifocal Lens Inspector Stat 09/18/21 12:21 Consult to Physical Therapy Evaluate & Treat 09/18/21 12:50 CBC Auto Diff [Complete Blood Count AUTO DIFF] Stat CMP [Comprehensive Metabolic Panel] Stat Lactate (Lactic Acid) Stat Procalcitonin Stat 09/18/21 12:55 COVID19 -Nasal swab/Pre-Proc Stat 09/18/21 13:30 Blood Culture Stat 09/18/21 14:11 US periph venous low extrem rt Stat Acetaminophen (Acetaminophen 325 Mg Tablet) 975 mg PO Q8HR PRN PRN Reason: Pain, Moderate (4-6) Baclofen (Baclofen 10 Mg Tablet) 10 mg PO TID PRN PRN Reason: spasm Enoxaparin Sodium (Enoxaparin 30 Mg/0.3 Ml Syringe) 30 mg SUBCUT DAILY [facility] Sodium Chloride (Normal Saline 0.9%) 1,000 mls @ 75 mls/hr IV CONT BRENT Last Admin: 09/18/21 17:20 Dose: 75 mls/hr Documented by: ANIKET Losartan Potassium (Losartan 25 Mg Tablet) 25 mg PO BID [facility] Ondansetron HCl (Ondansetron 4 Mg/2 Ml Inj) 4 mg IV Q8HR PRN PRN Reason: Nausea And Vomiting Tramadol HCl (Tramadol 50 Mg Tablet) 50 mg PO BEDTIME PRN PRN Reason: pain Vital Signs Vital signs: Vital Signs - 8 hr 09/18/21 13:30 09/18/21 13:32 09/18/21 14:00 Pulse Rate 71 75 Respiratory Rate 70 H Blood Pressure 109/66 113/53 L Pulse Oximetry 97 99 98 MDM - Wound/Laceration Lab Data Result diagrams: 09/18/21 12:50 09/18/21 12:50 Labs: Lab Results 09/18/21 09/18/21 09/18/21 Range/Units 12:50 12:50 12:50 WBC 9.0 (4.5-11.0) X10^3/uL RBC 3.23 L (4.0-5.2) X10^6/uL Hgb 9.6 L (12.0-16.0) g/dL Hct 29.0 L (36-46) % MCV 89.5 (80-100) fL MCH 29.6 (26-34) PG MCHC 33.1 (30-36) % RDW 14.4 (11.6-14.8) % Plt Count 516 H (150-400) X10^3/uL Neut % (Auto) 66.8 (50-75) % Lymph % (Auto) 19.7 L (25-40) % [place] % (Auto) 8.7 (3-14) % Eos % (Auto) 4.0 (2-4) % Baso % (Auto) 0.8 (0-2) % Neut # (Auto) 6000 (5518-6143) /uL Lymph # (Auto) 1800 ([address]75-4518) /uL [place] # (Auto) 800 (0-900) /uL Eos # (Auto) 400 (0-450) /uL Baso # (Auto) 100 (0-100) /uL Sodium 128 L (137-145) mmol/L Potassium 5.1 (3.4-5.1) mmol/L Chloride 93 L (98-107) mmol/L Carbon Dioxide 32 (22-32) mmol/L BUN 26 H (7-17) mg/dL Creatinine 1.36 H (0.52-1.04) mg/dL Estimated GFR 37.2 L (>60) mL/min BUN/Creatinine Ratio 19.1 (6-22) Glucose 96 (80-110) mg/dL Lactate 0.9 (0.7-2.1) mmol/L Calcium 9.6 (8.4-10.2) mg/dL Total Bilirubin 0.3 (0.2-1.3) mg/dL AST 22 (14-36) IU/L ALT 13 (<35) IU/L Alkaline Phosphatase 109 (38-126) U/L Total Protein 7.6 (6.3-8.2) g/dL Albumin 3.8 (3.5-5.0) g/dL Globulin 3.8 (1.7-4.1) g/dL Albumin/Globulin Ratio 1.0 (1.0-2.8) Procalcitonin (<0.5) ng/mL SARS-CoV-2 (PCR) (Negative) 09/18/21 09/18/21 Range/Units 12:50 12:55 WBC (4.5-11.0) X10^3/uL RBC (4.0-5.2) X10^6/uL Hgb (12.0-16.0) g/dL Hct (36-46) % MCV (80-100) fL MCH (26-34) PG MCHC (30-36) % RDW (11.6-14.8) % Plt Count (150-400) X10^3/uL Neut % (Auto) (50-75) % Lymph % (Auto) (25-40) % [place] % (Auto) (3-14) % Eos % (Auto) (2-4) % Baso % (Auto) (0-2) % Neut # (Auto) (8247-4399) /uL Lymph # (Auto) (0423-1697) /uL [place] # (Auto) (0-900) /uL Eos # (Auto) (0-450) /uL Baso # (Auto) (0-100) /uL Sodium (137-145) mmol/L Potassium (3.4-5.1) mmol/L Chloride (98-107) mmol/L Carbon Dioxide (22-32) mmol/L BUN (7-17) mg/dL Creatinine (0.52-1.04) mg/dL Estimated GFR (>60) mL/min BUN/Creatinine Ratio (6-22) Glucose (80-110) mg/dL Lactate (0.7-2.1) mmol/L Calcium (8.4-10.2) mg/dL Total Bilirubin (0.2-1.3) mg/dL AST (14-36) IU/L ALT (<35) IU/L Alkaline Phosphatase (38-126) U/L Total Protein (6.3-8.2) g/dL Albumin (3.5-5.0) g/dL Globulin (1.7-4.1) g/dL Albumin/Globulin Ratio (1.0-2.8) Procalcitonin 0.09 (<0.5) ng/mL SARS-CoV-2 (PCR) Negative (Negative) Imaging Data US - DVT: Radiologist's Impression: PROCEDURE:? US PERIPH VENOUS LOW EXTREM RT ? INDICATIONS:? SWELLING ? TECHNIQUE:? Real-time imaging, as well as color and pulse Doppler interrogation, were performed of the lower extremity deep veins from the inguinal ligament to the popliteal fossa.? ? COMPARISON:? None. ? FINDINGS:? The common femoral, femoral and popliteal veins are normally compressible, and free of intraluminal thrombus.? Color and pulse Doppler demonstrate normal phasic intraluminal flow.? There is normal augmentation response to distal compression maneuver. ? ? IMPRESSION:? No evidence of DVT in visualized right lower extremity veins. ? ? Dictated by: Nacho Chow M.D. on 09/18/2021 at 15:48 ? ? Approved by: Nacho Chow M.D. on 09/18/2021 at 15:48 ? MDM Narrative Medical decision making narrative: Patient is not able to care for at home evidence of her multiple sacral pressure ulcers. She is also on be mildly hyponatremic with a sodium of 128 previously in the lower 130s not a significant change. She is also found have acute kidney injury with mild increase of creatinine of 1.3 previously 0.8. accepts patient to observation Discharge Plan Departure Patient Disposition: Admitted as Observation Clinical Impression: Pressure ulcer of sacral region, Acute kidney injury, Hyponatremia Admit Date/Time: 09/18/21 14:16 Admit Provider: Lee Freire
[2021-09-18 13:08] LABS: Add Manual Diff / Slide Review NO; Basophils Absolute Auto 100 /uL (0-100); Basophils Percent Auto 0.8 % (0-2); Eosinophils Absolute Auto 400 /uL (0-450); Hemoglobin 9.6 g/dL (12.0-16.0); Lymphocytes Absolute Auto 1800 /uL (1100-4500); Lymphocytes Percent Auto 19.7 % (25-40); Mean Corpuscular HGB Conc 33.1 % (30-36); Mean Corpuscular Hemoglobin 29.6 PG (26-34); Mean Corpuscular Volume 89.5 fL (80-100); Monocytes Absolute Auto 800 /uL (0-900); Monocytes Percent Auto 8.7 % (3-14); Neutrophils Absolute Auto 6000 /uL (1500-7000); Neutrophils Percent Auto 66.8 % (50-75); Platelet Count 516 X10^3/uL (150-400); Red Blood Cell Count 3.23 X10^6/uL (4.0-5.2); Red Cell Distribution Width 14.4 % (11.6-14.8)
--- NOTE | 2021-09-18 13:21 | PC.NURSE ---
Pt daughter reports pt has had pressure sores on coccyx since May 2021. Wound in middle of gluteal cleft and another to right of midline. Drainage is yellow. Also has skin breakdown/non blanchable areas below wounds.
[2021-09-18 13:24] LABS: Alanine Aminotransferase 13 IU/L (<35); Albumin 3.8 g/dL (3.5-5.0); Alkaline Phosphatase 109 U/L (38-126); Aspartate Aminotransferase 22 IU/L (14-36); BUN Creatinine Ratio 19.1 (6-22); Bilirubin Total 0.3 mg/dL (0.2-1.3); Blood Urea Nitrogen 26 mg/dL (7-17); Calcium 9.6 mg/dL (8.4-10.2); Carbon Dioxide 32 mmol/L (22-32); Chloride 93 mmol/L (98-107); Estimated Glomerular Filt Rate 37.2 mL/min (>60); Globulin 3.8 g/dL (1.7-4.1); Glucose 96 mg/dL (80-110); HEMOLYSIS < 15 (0-50); Lactate (Lactic Acid) 0.9 mmol/L (0.7-2.1); Potassium 5.1 mmol/L (3.4-5.1); Sodium 128 mmol/L (137-145); Total Protein 7.6 g/dL (6.3-8.2)
[2021-09-18 13:40] LABS: COVID19 -Nasal RAPID Negative (Negative)
[2021-09-18 13:41] LABS: Procalcitonin 0.09 ng/mL (<0.5)
--- NOTE | 2021-09-18 14:11 | DI.US.S_ITS ---
PROCEDURE: US PERIPH VENOUS LOW EXTREM RT INDICATIONS: SWELLING TECHNIQUE: Real-time imaging, as well as color and pulse Doppler interrogation, were performed of the lower extremity deep veins from the inguinal ligament to the popliteal fossa. COMPARISON: None. FINDINGS: The common femoral, femoral and popliteal veins are normally compressible, and free of intraluminal thrombus. Color and pulse Doppler demonstrate normal phasic intraluminal flow. There is normal augmentation response to distal compression maneuver. IMPRESSION: No evidence of DVT in visualized right lower extremity veins. Dictated by: Nacho Chow M.D. on 09/18/2021 at 15:48 Approved by: Nacho Chow M.D. on 09/18/2021 at 15:48
[2021-09-18] MEDS: SODIUM CHLORIDE 0.9% 1,000 ML 75 ML IV (17:20)
--- NOTE | 2021-09-18 17:24 | PM.HP.1 ---
History of Present Illness History of Present Illness Date Patient Seen: 09/18/21 Time Patient Seen: 17:24 Chief complaint: Worsening bottom sores T-7days Narrative: This is an 80-year-old female with a past medical history of severe aortic stenosis, hypertension, trigeminal neuralgia, and probable dementia (not diagnosed formally) who was brought into the emergency room by her daughter over increasing concerns of her sacral wound and pain. The patient is not entirely clear of the reason that she is in the hospital for than sacral pain and is unable to provide much extended history so the remainder is gathered from chart review as well as the patient's daughter currently at bedside. Prior notes from her PCP indicate difficulties in caring for the patient last year, with referral to home health given at that time. Daughter ultimately decided to have the patient enter assisted living in [facility]. At around [place] time, or 4 months ago, the patient developed sacral decubitus pressure ulcers at her assisted living facility, and the daughter says states that she decided to have the patient return home. There has been no resumption of home health, but the patient does have caregivers Thursday through Thursday to do basic things. She has not had a home health nurse. She has been trying to offload pressure with assistive devices but the patient has been more more difficult to move in difficult to care for at home. The daughter denies any recent fever, chills, complaints of dysuria. She has only had the sacral pain. She has some chronic right lower extremity edema ever since her hip surgery approximately 6 years ago. She has not had much mobility since that surgery anyway but since her discharge from the assisted living facility her decline has been more pronounced. Daughter has also noted a drop in her oral intake. For the last few days she has noticed some bright red blood in her diapers, but has known hemorrhoids. The patient currently denies any shortness of breath, chest pain, abdominal pain, nausea, or vomiting. The daughter further reports no recent fevers. Her only complaint at this time is of sacral discomfort, though this is improved right now and she feels fairly comfortable. In the emergency room, the patient's vital signs are unremarkable. Laboratory evaluation revealed a mild anemia compared to prior labs with hemoglobin of 9.6. Chemistries revealed mild hyponatremia with sodium of 128, mild TASH with a creatinine of 1.36, COVID-19 testing was negative. DVT study was performed of her lower extremity due to swelling which did not show evidence of a DVT. Patient was admitted under observation for further management mild hyponatremia, TASH likely due to dehydration and for assistance with placement. Patient History Medical History Aortic stenosis Foot fracture, left Hypertension Neurogenic bladder Sciatica Trigeminal neuralgia Surgical History History of bowel resection History of carpal tunnel surgery History of hip replacement Family & Social History Family History (Updated 09/18/21 @ 17:36 by Lee Freire DO) Mother Hypertension Father Hypertension Social History: household members children Prior Living Arrangements House Safety & Behavioral: Feels Safe in Current Yes Environment Been Physically Hurt or No Threatened By a Person Suicidal Ideation Description None Suicide Plan Description No Plan Tobacco & Substance use: Smoking Status Never smoker alcohol intake frequency holiday/special occasion Substance Use Type does not use Meds Home Medications and Allergies Home Medications Medication Instructions Recorded Confirmed Type furosemide 20 mg tablet (Lasix) 40 mg PO DAILY #180 tab 06/04/21 09/18/21 Rx losartan 25 mg tablet 25 mg PO BID #180 tab 06/04/21 09/18/21 Rx potassium chloride 10 mEq 20 meq PO DAILY #180 tab 06/04/21 09/18/21 Rx tablet,extended release (Klor-Con) tramadol 50 mg tablet 50 mg PO BEDTIME PRN #30 tab 06/04/21 09/18/21 Rx baclofen 10 mg tablet 10 mg PO TID #270 tab 06/10/21 09/18/21 Rx Wheelchair #1 06/11/21 09/18/21 Rx four wheeled walker #1 ea 06/11/21 09/18/21 Rx diphenhydramine HCl 25 mg capsule 25 mg PO BEDTIME PRN 09/18/21 09/18/21 History (Benadryl) oxcarbazepine 300 mg tablet 300 mg PO BID 09/18/21 09/18/21 History Allergies Allergy/AdvReac Type Severity Reaction Status Date / Time codeine Allergy Unknown Verified 09/18/21 10:53 Sulfa (Sulfonamide Allergy Unknown Verified 09/18/21 10:53 Antibiotics) Review of Systems Review of Systems Narrative: All other systems reviewed with the patient and are negative unless otherwise stated. However, the patient is not entirely reliable. Exam Vital Signs (past 8 hours): - 09/18/21 10:51 09/18/21 13:30 09/18/21 13:32 Temperature 98.4 F Pulse Rate 70 71 Respiratory Rate 14 70 H Blood Pressure 188/84 H 109/66 Pulse Oximetry 99 97 99 09/18/21 14:00 09/18/21 14:30 09/18/21 15:00 Temperature Pulse Rate 75 72 70 Respiratory Rate Blood Pressure 113/53 L 149/64 H Pulse Oximetry 98 98 98 09/18/21 15:21 09/18/21 15:30 09/18/21 16:00 Temperature Pulse Rate 75 78 74 Respiratory Rate Blood Pressure 161/76 H 137/56 L 137/62 Pulse Oximetry 98 98 97 Oxygen Delivery Method Room Air Narrative Exam Narrative: General:? Patient is well developed and well nourished elderly female in no distress at this time. HEENT:? Normocephalic, atraumatic, extraocular muscles intact, oral pharynx is clear and mucous membranes are moist. Neck: supple and symmetric, trachea is midline, no cervical adenopathy. Negative for JVD Chest:? Normal AP diameter and contour without kyphoscoliosis, no tachypnea, equal chest rise bilaterally. Lungs:? CTA b/l no wheezing rhonchi or rales. Cardio:?RRR with a 3/6 systolic murmur, no rubs or gallops. Abdomen: S NT ND. Rectal: external only, see below for decubitus ulcer, does not appear to have any tracts to rectum, there is a small likely protruding internal hemorrhoid which is non-tender, no blood noted externally. Musculoskeletal:? Muscle strength and tone are equal bilaterally but she is diffusely weak. There is no joint tenderness. Extremities: Mild pretibial edema bilaterally, with mild erythema of the right lower extremity without warmth or tenderness. No Joint effusions. No cyanosis or clubbing. Skin:? Pale,? Warm to touch. Mild lower extremity erythema and shiny appearance to her skin as noted above. There is a stage III sacral ulcer in the midline, and a stage II ulcer just to the right of midline in her buttock. There does not appear to be any surrounding erythema or induration, and there is no necrosis noted. The wounds do appear quite clean. Neuro:? Alert, confused with poor short-term memory. Sensation to touch intact in all extremities, no gross deficits noted of cranial nerves. her right lower extremity does seem weaker (3+ vs 4+) compared to her left though the daughter states this is chronic since her hip surgery. Psych:? Patient has a well-kept appearance, appropriate affect, mental status attitude thought context and judgment are appropriate for age. Objective Labs Result Diagrams: 09/18/21 12:50 09/18/21 12:50 Labs: Laboratory Results - last 24 hr 09/18/21 09/18/21 09/18/21 12:50 12:50 12:50 WBC 9.0 RBC 3.23 L Hgb 9.6 L Hct 29.0 L MCV 89.5 MCH 29.6 MCHC 33.1 RDW 14.4 Plt Count 516 H Neut % (Auto) 66.8 Lymph % (Auto) 19.7 L Woods % (Auto) 8.7 Eos % (Auto) 4.0 Baso % (Auto) 0.8 Neut # (Auto) 6000 Lymph # (Auto) 1800 Woods # (Auto) 800 Eos # (Auto) 400 Baso # (Auto) 100 Sodium 128 L Potassium 5.1 Chloride 93 L Carbon Dioxide 32 BUN 26 H Creatinine 1.36 H Estimated GFR 37.2 L BUN/Creatinine Ratio 19.1 Glucose 96 Lactate 0.9 Calcium 9.6 Total Bilirubin 0.3 AST 22 ALT 13 Alkaline Phosphatase 109 Total Protein 7.6 Albumin 3.8 Globulin 3.8 Albumin/Globulin Ratio 1.0 Procalcitonin SARS-CoV-2 (PCR) 09/18/21 09/18/21 12:50 12:55 WBC RBC Hgb Hct MCV MCH MCHC RDW Plt Count Neut % (Auto) Lymph % (Auto) Woods % (Auto) Eos % (Auto) Baso % (Auto) Neut # (Auto) Lymph # (Auto) Woods # (Auto) Eos # (Auto) Baso # (Auto) Sodium Potassium Chloride Carbon Dioxide BUN Creatinine Estimated GFR BUN/Creatinine Ratio Glucose Lactate Calcium Total Bilirubin AST ALT Alkaline Phosphatase Total Protein Albumin Globulin Albumin/Globulin Ratio Procalcitonin 0.09 SARS-CoV-2 (PCR) Negative Assessment & Plan Assessment & Plan narrative: This is an 80-year-old female with a past medical history of severe aortic stenosis, hypertension, trigeminal neuralgia, and probable dementia (not diagnosed formally) who was brought into the emergency room by her daughter over increasing concerns of her sacral wound and pain. 1. Stage III and stage II sacral pressure ulcers, acute, present on admission - continue local wound care and dressing per nursing protocols. - outpatient wound care referral on discharge. - no indication for antibiotics at this time and does not appear to need debridement. - frequent turning and repositioning. - can continue home tramadol and baclofen for pain. Try to avoid opiates or benzos for pain given age. 2. TASH - creatnine 1.36 on admission, baseline appears to be around 0.8 previously. 3. Hyponatremia, - likely in setting of decreased PO intake. Will give gentle IVF overnight and continue to follow trend. Be cautious with fluids given aortic stenosis. 4. severe aortic stenosis - no current indication for repeat echo, continue home medications other than diuretic given TASH and dehydration. - no current shortness of breath or chest pain. 5. HTN - hold home diuretic as noted above. can continue home losartan. 6. Confusion - daughter reports worsening confusion over the past 4 months. May be related to hyponatremia, anemia, dehydration but suspect dementia. - will check TSH and B12 level. - OT evaluation with [facility]. 7. Anemia, unknown chronicity - Hg 9.6 from last lab values of near 12. Possibly from internal hemorrhoids per history. - work on constipation for now, continue to monitor for signs of bleeding and monitor h/h to evaluate for possible bleeding. Dispo : Admit under observation, daughter requesting SNF if able. Will depend on PT / OT evaluations. DVT: Lovenox daily Code: DNR, daughter is POA and surrogate decision maker. I have utilized all available immediate resources to obtain, update, or review the patient's current medications. COVID-19 COVID-19 status: Negative Time Spent With Patient Critical Care time: I spent a total of [] minutes of critical care time on this patient's care today; this time is exclusive of procedural time. Quality MIPS - Admit I confirm the patient?s Advance Care Plan is present, Code status is documented, Surrogate decision maker is in patient?s record [If Yes, STOP here]: Yes
--- NOTE | 2021-09-18 17:54 | PC.NURSE ---
Admit Note Patient to room 218 from ER at 1634, transferred to bed via slider board. Patient is wheelchair bound at baseline. Dr. Freire at bedside for wound assessment, pictures taken and Allevyn dressings changed (see wound assessment charting). Heels with erythema but blanchable, heel foam booties placed. Incontinent of urine, brief changed. Upper and lower dentures present, hearing aid to right ear and glasses. Clothing and cell phone/bus attendant in room. Daughter Jessica at bedside. Oriented to call light/bed/tv controls. Call light within reach. Bed alarm on for safety.
[2021-09-18] MEDS: LOSARTAN 25 MG TABLET PO (20:15)
[2021-09-18] MEDS: TRAMADOL 50 MG TABLET PO (20:16)
[2021-09-18] MEDS: BACLOFEN 10 MG TABLET PO (20:18)
[2021-09-19] VITALS (8 sets, daily range): BP systolic 126–153; BP diastolic 51–63; PULSE 66–85; RESP 16–18; TEMP 36.9–37.3; O2SAT 93–97
[2021-09-19] MEDS: diphenhydrAMINE 25 MG TABLET PO (00:09)
[2021-09-19 05:54] LABS: Add Manual Diff / Slide Review NO; Basophils Absolute Auto 100 /uL (0-100); Basophils Percent Auto 1.1 % (0-2); Eosinophils Absolute Auto 400 /uL (0-450); Eosinophils Percent Auto 4.1 % (2-4); Hematocrit 24.6 % (36-46); Hemoglobin 8.1 g/dL (12.0-16.0); Lymphocytes Absolute Auto 1900 /uL (1100-4500); Lymphocytes Percent Auto 22.4 % (25-40); Mean Corpuscular HGB Conc 32.7 % (30-36); Mean Corpuscular Hemoglobin 29.2 PG (26-34); Mean Corpuscular Volume 89.3 fL (80-100); Monocytes Absolute Auto 800 /uL (0-900); Monocytes Percent Auto 9.3 % (3-14); Neutrophils Absolute Auto 5400 /uL (1500-7000); Neutrophils Percent Auto 63.1 % (50-75); Platelet Count 433 X10^3/uL (150-400); Red Blood Cell Count 2.75 X10^6/uL (4.0-5.2); Red Cell Distribution Width 13.9 % (11.6-14.8); White Blood Cell Count 8.5 X10^3/uL (4.5-11.0)
[2021-09-19 06:35] LABS: BUN Creatinine Ratio 18.8 (6-22); Blood Urea Nitrogen 25 mg/dL (7-17); Calcium 8.7 mg/dL (8.4-10.2); Carbon Dioxide 28 mmol/L (22-32); Chloride 98 mmol/L (98-107); Estimated Glomerular Filt Rate 38.2 mL/min (>60); Glucose 81 mg/dL (80-110); HEMOLYSIS < 15 (0-50); Potassium 4.3 mmol/L (3.4-5.1); Sodium 129 mmol/L (137-145)
[2021-09-19] MEDS: SODIUM CHLORIDE 0.9% 1,000 ML 75 ML IV (06:46)
[2021-09-19 07:06] LABS: TSH w/ Reflex to FT4 1.69 uIU/mL (0.47-4.68)
[2021-09-19 07:24] LABS: Vitamin B12 Reflex MMA if <400 608 pg/mL (239-931)
[2021-09-19] MEDS: LOSARTAN 25 MG TABLET PO ×2 (08:42→21:04)
[2021-09-19] MEDS: ENOXAPARIN 30 MG/0.3 ML SYRINGE SUBCUT (08:42)
[2021-09-19] MEDS: BACLOFEN 10 MG TABLET PO ×2 (08:48→21:05)
--- NOTE | 2021-09-19 10:46 | PT.IIE ---
Current Diagnoses Pressure ulcer of sacral region, stage 3 (09/18/21) Medical History (Last Reviewed 09/18/21 @ 17:35 by Lee Freire DO) Aortic stenosis Foot fracture, left Hypertension Neurogenic bladder Sciatica Trigeminal neuralgia Physical Therapy Inpatient Evaluation/Re-Eval M1 PT/OT-IP Prior Functional Status Start: 09/19/21 13:02 Freq: NEEDED Status: Active Protocol: Document 09/19/21 10:46 AB (Rec: 09/19/21 13:17 AB [id number]) Medical Review Prior Functional Status Medical History Reviewed Yes Communication able to make needs known; TAZLINA Mobility and Gait pt stated that she was able to ambulate ~ 4 months ago using 4WW but then was unable to usually just stays seated on her recliner. stated that her daughter assists her with bed mobility, stand pivots her to her w/c. Activities of Daily Living and IADL's caregiver assists with shower and toileting needs Social History Household Members children Living Arrangements House Number of Floors (Floors) One Floor Home Environment Standard Height Toilet,Walk in Shower Home Equipment Four Wheel Walker,Manual Wheelchair,Bedside Commode, Hand Held Shower,Hospital Bed, Bed Rails Additional Social History Comment pt stated that she has a caregiver that comes in from 9am to 4 pm and then her daughter Alessio assists her when caregiver is not around M2 PT-IP Current Condition Start: 09/19/21 13:02 Freq: NEEDED Status: Active Protocol: Document 09/19/21 10:46 AB (Rec: 09/19/21 13:17 AB [email or web address]) Physical Therapy Current Condition Current Condition Evaluation Date 09/19/21 Treatment Diagnosis sacral ulcer; generalized weakness Onset Date 09/18/21 M3 PT-IP Subjective Start: 09/19/21 13:02 Freq: NEEDED Status: Active Protocol: Document 09/19/21 10:46 AB (Rec: 09/19/21 13:17 AB [email or web address]) Subjective Physical Therapy Visit Type Type Initial Evaluation Visit Start Time 10:46 Visit Stop Time 11:31 Total Visit Minutes 45 Number of [employer] SUPPORT FITTER Visits 0 Physical Therapy Visit Comments Patient Comments agreed to do PT M4 PT-IP Mobility and Gait Start: 09/19/21 13:02 Freq: NEEDED Status: Active Protocol: Document 09/19/21 10:46 AB (Rec: 09/19/21 13:17 [email or web address]) PT-Bed Mobility Assessment Rolling Level of Assist Maximal Assistance,2 Person Assistance Supine to Sit Supine to Sit Maximum Assistance,2 Person Assistance,Head of Bed Elevated,Bedrails Sit to Supine Sit to Supine Total Assistance,2 Person Assistance,Bedrails Scooting Scooting to Edge of Bed Dependent Scooting Up and Down in Bed Dependent PT-Transfer Assessment Sit to and From Stand Sit to and from Stand Maximum Assistance,2 Person Assistance,Use of Upper Extremities Equipment Transfer Assistive Device Gait Belt,Front Wheeled Walker Orthotic/Prosthetic Devices or Brace: No Comments Mobility Comments pt completed supine to sit max A x 2 and max cues. required max A x 1- 2 for sitting balance on EOB. pt with LOB either posteriorly or anteriorly requiring assist. total A for scooting. required max A x 2 for sit to stand x 2 attempts but pt unable to tolerate much standing to transfer and unable to stand upright. pt assisted back into the bed. total A x 2 for sit to supine. max A x 2 for rolling L<>R for positioning in bed. call ight and table placed within reach. Gait Assessment Comments Gait Comments unable PT-Balance Assessment Sitting Balance and Reactions Static Sitting Balance Ability Poor Dynamic Sitting Balance Ability Poor Standing Balance and Reactions Static Standing Balance Ability Poor Dynamic Standing Balance Ability Poor Device Used FWW M5 PT-IP Objective Assessments Start: 09/19/21 13:02 Freq: NEEDED Status: Active Protocol: Document 09/19/21 10:46 (Rec: 09/19/21 13:17 [email or web address]) Orientation Orientation/Cognition Level of Alertness Alert Language Function Ability Hard of Hearing Safety Awareness Decreased Safety Awareness Memory Description Short Term Impaired Gross Range of Motion Lower Extremity ROM Assessment Bilaterally Impaired Impairments ankle tightness Strength Lower Extremity Strength Assessment Bilaterally Impaired Comments Strength Comments LLE: 3-/5 RLE: 2-/5 M6 PT-IP Treatment Start: 09/19/21 13:02 Freq: NEEDED Status: Active Protocol: Document 09/19/21 10:46 AB (Rec: 09/19/21 13:17 [email or web address]) Physical Therapy Treatment Education Education Provided Safety M7 PT-IP Assessment and Plan Start: 09/19/21 13:02 Freq: NEEDED Status: Active Protocol: Document 09/19/21 10:46 AB (Rec: 09/19/21 13:17 AB [id number]) PT Summary Assessment and Plan Potential Rehabilitation Potential Fair Status of Condition at Evaluation Evolving Summary Impairments Pain,ROM,Strength,Balance, Coordination,Sensation,Tone, Cognition,Bed Mobility, Transfers,Gait,Activity Tolerance Assessment Summary pt requiring max a x 2 to total A x 2 with mobility. pt stated that her caregiver assists her with mobility stand pivot of one person but currently requires 2 peson assist. will continue to assess progress. pt at this time will require SNF rehab but eventually will need LTC. Goals Bed Mobility Goal Moderate Assistance Transfer Goal Moderate Assistance,Front Wheeled Walker Other Goals improve sitting balance dynamic to F improve standing balance to F- Frequency of Treatment Frequency Of Treatment Once a Day Treatment Plan Physical Therapy Treatment Plan Bed Mobility Training,Transfer Training,Gait Training, Therapeutic Exercise,Balance Retraining,Discharge Planning, Hot or Cold Pack,Neuromuscular Re-ed,Coordination Retraining ,Manual Therapy Precautions Other Precautions falls; sacral wound Recommendations To Nursing Amount of Assist Needed Total Assistance,Mechanical Lift Discharge Recommendations PT Discharge Recommendations SNF Rehab Transportation Needs at Discharge Wheelchair/Cabulance,Stretcher /Ambulance
--- NOTE | 2021-09-19 12:52 | OT.IP.EVAL ---
Current Diagnoses Pressure ulcer of sacral region, stage 3 (09/18/21) Past Medical History (Last Reviewed 09/18/21 @ 17:35 by Lee Freire DO) Aortic stenosis Foot fracture, left History of bowel resection History of carpal tunnel surgery History of hip replacement Hypertension Neurogenic bladder Sciatica Trigeminal neuralgia Surgical History (Last Reviewed 09/18/21 @ 17:35 by Lee Freire DO) History of bowel resection History of carpal tunnel surgery History of hip replacement Occupational Therapy Inpatient Evaluation/Re-Eval M1 PT/OT-IP Prior Functional Status Start: 09/19/21 13:02 Freq: NEEDED Status: Active Protocol: Document 09/19/21 12:20 [facility] (Rec: 09/19/21 14:01 [facility] [id number]) Medical Review Prior Functional Status Medical History Reviewed Yes Communication able to make needs known; [facility] Mobility and Gait pt stated that she was able to ambulate ~ 4 months ago using 4WW but then was unable to usually just stays seated on her recliner. stated that her daughter assists her with bed mobility, stand pivots her to her w/c. Activities of Daily Living and IADL's caregiver assists with shower and toileting needs. Pt states her daughter assist with all dressing needs. Pt states only able to eat on her own after set-up. Social History Household Members children Living Arrangements House Number of Floors (Floors) One Floor Number of Stairs To Enter/Railing? Pt states has 3-4 steps with landings in between each step. Pt states her family call the fire department to help carry here into and out of the house when needed. Home Environment Standard Height Toilet,Walk in Shower Home Equipment Four Wheel Walker,Manual Wheelchair,Bedside Commode, Hand Held Shower,Hospital Bed, Bed Rails Additional Social History Comment pt stated that she has a caregiver that comes in from 9am to 4 pm and then her daughter Alessio assists her when caregiver is not around M2 OT-IP Current Condition Start: 09/19/21 13:38 Freq: Status: Active Protocol: Document 09/19/21 12:20 [facility] (Rec: 09/19/21 14:01 [facility] [id number]) Occupational Therapy Current Condition Current Condition Evaluation Date 09/19/21 Treatment Diagnosis Sacral Ulcer, decreased mobility Diagnosis Onset Date 09/18/21 M3 OT- IP Subjective and Pain Start: 09/19/21 13:38 Freq: Status: Active Protocol: Document 09/19/21 12:20 [facility] (Rec: 09/19/21 14:01 [facility] [id number]) OT- Subjective Occupational Therapy Visit Type Type Initial Evaluation Visit Start Time 12:20 Visit Stop Time 12:52 Total Visit Minutes 32 Occupational Therapy Visit Comments Patient Comments Pt not wanting to get up as states did earlier and that it did not go well. Pt open to doing SLUMS as requested by the hospitalist. Patient/Caregiver Goals To get better. OT Pain Assessment Pain When Pain Assessed At Rest Pain Present Pain Present Denied Pain M4 OT- IP ADL's Start: 09/19/21 13:38 Freq: Status: Active Protocol: Document 09/19/21 12:20 [facility] (Rec: 09/19/21 14:01 [facility] [id number]) OT MMH-[id number] General Evaluation Self-Feeding Ability Standby Assistance Areas Needing Assistance Cutting Food,Opening Containers Comments OT Self-Feeding Comments Set-up assist and pt states like to use her hands to eat her carrots. Pt able to appropriate use the utensil in her right hand with lateral pinch quality control analyst. OT ADL-Grooming General Evaluation Areas Needing Assistance Retrieving/Set-up of Grooming Items Comments OT Grooming Comments Pt able to wash her face after set-up of wash cloth. OT ADL-Oral Care Comments Oral Care Comments Not performed. OT ADL-Dressing Comments OT Dressing Comments Total asisst at this time. OT ADL-Toileting Comments OT Toileting Comments Not performed. Pt states prior her daughter or caregiver would just do stand pivot to the BSC. OT ADL-Bathing Comments OT Bathing Comments Sponge bath more appropriate at this time. M5 OT- IP IADL's Start: 09/19/21 13:38 Freq: Status: Active Protocol: Document 09/19/21 12:20 [facility] (Rec: 09/19/21 14:01 [facility] [id number]) OT-Instrumental Activities of Daily Living Home Safety Awareness Awareness of Need for Assistance at Home Decreased Awareness Ability to Problem Solve Emergency Unable to Problem Solve Situations Home Safety Comments Pt able to answer most basic emergency needs accurately but not aware what to do in case the toilet were to overflow. Medication Management Medication Management Caregiver Administers Money Management Money Management Caregiver Provides Assistance Meal Preparation Meal Preparation Caregiver Provides Assist Veneer Repairer Machine Veneer Repairer Machine Caregiver Provides Assist M6 OT- IP Functional Cognition Start: 09/19/21 13:38 Freq: Status: Active Protocol: Document 09/19/21 12:20 [facility] (Rec: 09/19/21 14:01 [facility] [id number]) Cognitive Factors Limiting Selfcare Function Cognitive Ability Level of Alertness Alert Patient Orientation Name,Place,Situation Attention Span Ability Capable of Focused Attention, Capable of Sustained Attention Ability to Follow Commands Able to Follow One Step Commands Memory Description Short Term Impaired,Working Impaired Problem Solving Ability Unable to Identify Errors, Needs Assist to Identify Solutions Cognitive Tests SLUMS Pt has an 8th grade education. Pt scored 12/26 as unable to write due to tremors in right hand in order to draw the clock. Pt's score implies dementia. Pt not able to subtract 100-23, only able to name 4 animals in one minute, able to recall 3/5 objects after time passed, unable to states 4 digit number backwards, and able to answer 1/4 questions right after a paragraph read. Cognitive Comments Cognitive Assessment Comments Pt is pleasant and cooperative . Pt is having difficulty with her short term memory. OT- Vision and Hearing OT- Hearing Assessment OT- Hearing Assessment Hearing Impaired OT- Vision Assessment Visual Acuity Glasses All The Time M7 OT- IP Mobility and Balance Start: 09/19/21 13:38 Freq: Status: Active Protocol: Document 09/19/21 12:20 [facility] (Rec: 09/19/21 14:01 [facility] [id number]) OT-Transfer Assessment Comments Mobility Comments Pt not wanting to perform, per PT eval max-total assistx2 for all bed mobility needs. M8 OT- IP Objective Assessments Start: 09/19/21 13:38 Freq: Status: Active Protocol: Document 09/19/21 12:20 [facility] (Rec: 09/19/21 14:01 [facility] [id number]) OT Gross Range of Motion Upper Extremity Range of Motion Assessment Bilaterally Impaired OT Strength Upper Extremity Strength Assessment Bilaterally Impaired OT- Coordination Assessment Comments Coordination Comments Arthritic changes in hands R>L and unable to open her right hand. M9 OT- IP Assessment and Plan Start: 09/19/21 13:38 Freq: Status: Active Protocol: Document 09/19/21 12:20 [facility] (Rec: 09/19/21 14:01 [facility] [id number]) OT Summary Assessment and Plan Potential Rehabilitation Potential Fair Analytic Complexity at Evaluation Moderate Summary OT Impairments Pain,Range of Motion,Strength, Balance,Coordination, Functional Cognition, Functional Mobility,Grooming, Toilet Transfers Progress Towards Goals Slow Progress due to Medical Issues,Slow Progress due to Activity Tolerance,Slow Progress due to Cognition Assessment Summary Pt MOD complexity and main barriers are pain, decreased functional cognition, and now needing exttensive assist for all needs. Per pt was able to use her 4ww to walk 4 months ago and was able to do stand pivot transfers with her daughter prior to coming to the hospital. Pt will benefit from skilled rehab. Goals Self-Feeding Goal Standby Assistance Grooming Goal Standby Assistance Toilet Transfer Goal Moderate Assistance Days to Meet Goals 40 Frequency of Treatment Frequency Of Treatment Once a Day Treatment Plan OT Treatment Plan ADL Training,Functional Cognition Training,Functional Mobility,Patient/Family Education,Discharge Planning Discharge Recommendations OT Discharge Recommendations SNF Rehab Transportation Needs at Discharge Stretcher/Ambulance
--- NOTE | 2021-09-19 13:14 | CM.DPNOTE ---
Initial DCP Assessment Note Pt is an 80 yo female, resident of [place], living w/dtr Jessica since June 2021. Patient arrives w/ Worsening bottom sores T-7days per notes and admitted for management of Stage III and stage II sacral pressure ulcers, TASH and hyponatremia PCP: Juanita Herrera Payer: Thor RAMEY (visiting member confirmed by Alissa/Thor) Reviewed chart, patient with some confusion and memory deficit so placed call to dtr Jessica, who works as a laborer petroleum refinery for [employer], here on campus. According to our conversation: Patient has three adult children, two of whom are living in the [place], [place] area. No one has DPOA per Jessica; however Jessica has been the only adult child willing to assist in patient's care and financial reporting accountant. Patient has been living w/Jessica and her since June 2021, patient had moved in w/Jessica from her PRISON in [place]. Patient has care givers from [employer] P#[phone], a caregiver agency in [place]. These care givers provide care from -Thursday-Thursday when Jessica and her are working. Finances: Patient has approx $3,500 mo in detention from her late spouse and $800 in VA spousal benefits. Jessica states patient has no savings to assist w/ a deposit for respite care or SNF, private payment and does not own a home Jessica and spouse have been assisting w/cost of in home care givers Discussed [facility]; provided application which Jessica working on this afternoon. Explained in detail that patient will likely not be appropriate to remain admitted on the acute care floor while [facility] application is completed, processed and placement attempted. Jessica stated understanding. Discussed attempt at SNF w/Thor; Jessica agreeable and has no SNF preference. Therapies pending today. Patient would benefit from SNF for halfway and therapies, will need to attempt SNF placement and attempt SNF auth for wound care and therapies MANI [place] Discharge Planning/Care Management CM Discharge Assessment Start: 09/19/21 13:05 Freq: Status: Active Protocol: Document 09/19/21 13:07 FRANNIE (Rec: 09/19/21 13:14 [facility]ANNIE [id number]) Discharge Planning Assessment Assigned Supervisor [employer]teration [employer]room MANI Carrizales DPOA/Assigned Designee Name Jessica ray Haywood Contact Information [phone] Advance Directives? Yes Advance Directives on File No History Provided By Family Member,Medical Record Prior Living Arrangements House Household Members children Type of transporation used prior to Relies on Others admit Independent with ADL's No Is patient alert and oriented? No Patient/Family Preference Assisted Facility Barriers to Discharge Yes
--- NOTE | 2021-09-19 16:29 | P.PN_ITS ---
Subjective Subjective Date Patient Seen: 09/19/21 Time Patient Seen: 14:00 Interval history: 80 year old female admitted with hyponatremia, TASH, anemia, worsening weakness and sacral decubitus ulcers. Exam Vital Signs (past 8 hours): - 09/19/21 08:42 09/19/21 12:26 Temperature 98.4 F Pulse Rate 80 84 Respiratory Rate 16 Blood Pressure 138/53 L 138/58 L Pulse Oximetry 97 Oxygen Delivery Method Room Air Oxygen Flow Rate 0 Narrative Exam Narrative: General:? Patient is well developed and well nourished elderly female in no distress at this time. HEENT:? Normocephalic, atraumatic, extraocular muscles intact, oral pharynx is clear and mucous membranes are moist. Lungs:? CTA b/l no wheezing rhonchi or rales. Cardio:?RRR with a 3/6 systolic murmur, no rubs or gallops. Abdomen: S NT ND. Musculoskeletal:? Muscle strength and tone are equal bilaterally but she is diffusely weak.? There is no joint tenderness. Extremities:? Mild pretibial edema bilaterally, with mild erythema of the right lower extremity without warmth or tenderness.? No Joint effusions. No cyanosis or clubbing. Neuro:? Alert, confused with poor short-term memory.? Sensation to touch intact in all extremities, no gross deficits noted of cranial nerves. Psych:? Patient has a well-kept appearance, appropriate affect, mental status attitude thought context and judgment are appropriate for age. Objective Labs Result Diagrams: 09/19/21 05:38 09/19/21 05:38 Labs: Laboratory Results - last 24 hr 09/19/21 09/19/21 09/19/21 05:38 05:38 05:38 WBC 8.5 RBC 2.75 L Hgb 8.1 L Hct 24.6 L MCV 89.3 MCH 29.2 MCHC 32.7 RDW 13.9 Plt Count 433 H Neut % (Auto) 63.1 Lymph % (Auto) 22.4 L [place] % (Auto) 9.3 Eos % (Auto) 4.1 H Baso % (Auto) 1.1 Neut # (Auto) 5400 Lymph # (Auto) 1900 [place] # (Auto) 800 Eos # (Auto) 400 Baso # (Auto) 100 Sodium 129 L Potassium 4.3 Chloride 98 Carbon Dioxide 28 BUN 25 H Creatinine 1.33 H Estimated GFR 38.2 L BUN/Creatinine Ratio 18.8 Glucose 81 Calcium 8.7 Vitamin B12 TSH 1.69 09/19/21 05:38 WBC RBC Hgb Hct MCV MCH MCHC RDW Plt Count Neut % (Auto) Lymph % (Auto) [place] % (Auto) Eos % (Auto) Baso % (Auto) Neut # (Auto) Lymph # (Auto) [place] # (Auto) Eos # (Auto) Baso # (Auto) Sodium Potassium Chloride Carbon Dioxide BUN Creatinine Estimated GFR BUN/Creatinine Ratio Glucose Calcium Vitamin B12 608 TSH [facility] Medical History Aortic stenosis Foot fracture, left Hypertension Neurogenic bladder Sciatica Trigeminal neuralgia Surgical History History of bowel resection History of carpal tunnel surgery History of hip replacement Family History (Updated 09/18/21 @ 17:36 by Lee Freire DO) Mother Hypertension Father Hypertension Social History household members: children Smoking Status: Never smoker Assessment & Plan Assessment & Plan narrative: This is an 80-year-old female with a past medical history of severe aortic stenosis, hypertension, trigeminal neuralgia, and probable dementia (not diagnosed formally) who was brought into the emergency room by her daughter over increasing concerns of her sacral wound and pain. 1. Stage III and stage II sacral pressure ulcers, acute, present on admission ?- continue local wound care and dressing per nursing protocols. ?- outpatient wound care referral on discharge. ?- no indication for antibiotics at this time and does not appear to need debridement. ?- frequent turning and repositioning. ?- can continue home tramadol and baclofen for pain. Try to avoid opiates or benzos for pain given age. ? 2. TASH ?- creatnine 1.36 on admission, baseline appears to be around 0.8 previously. 1.33 today. Multiple issues with IV line will encourage PO fluids today and continue to monitor. 3. Hyponatremia, ?- likely in setting of decreased PO intake. Be cautious with fluids given aort ic stenosis. -issues with IV line, will encourage PO intake and continue to monitor. Na slightly improved to 129. 4. severe aortic stenosis ?- no current indication for repeat echo, continue home medications other than diuretic given TASH and dehydration. ?- no current shortness of breath or chest pain. 5. HTN ?- hold home diuretic as noted above. can continue home losartan. 6. Cognitive impairment, dementia. ?- daughter reports worsening confusion over the past 4 months. May be related to hyponatremia, anemia, dehydration but suspect dementia. ?- TSH unremarkable. B12 608. ?- OT evaluation with SLUMS of between 12 and 16. 7. Anemia, unknown chronicity ?- Hg 9.6 from last lab values of near 12. Possibly from internal hemorrhoids per history. Declined to 8.1 today without symptoms. ?- work on constipation for now, continue to monitor for signs of bleeding and monitor h/h to evaluate for possible bleeding. Dispo : changed to inpatient, probable SNF on discharge. DVT: Lovenox daily Code: DNR, daughter is POA and surrogate decision maker. I have utilized all available immediate resources to obtain, update, or review the patient's current medications.? Time Spent With Patient Critical Care time: I spent a total of [] minutes of critical care time on this patient's care today; this time is exclusive of procedural time.
[2021-09-19] MEDS: TRAMADOL 50 MG TABLET PO (21:05)
--- NOTE | 2021-09-19 22:54 | PC.NURSE ---
Pt is A&O x4, complains of pain in buttocks, on Q2 turns. Dressing changed, Allevyn applied to buttocks.
[2021-09-20] VITALS (8 sets, daily range): BP systolic 140–176; BP diastolic 55–87; PULSE 75–98; RESP 16–18; TEMP 36.4–37.2; O2SAT 95–98
[2021-09-20 05:34] LABS: Add Manual Diff / Slide Review NO; Basophils Absolute Auto 100 /uL (0-100); Basophils Percent Auto 1.3 % (0-2); Eosinophils Absolute Auto 300 /uL (0-450); Eosinophils Percent Auto 3.8 % (2-4); Hematocrit 26.2 % (36-46); Hemoglobin 8.8 g/dL (12.0-16.0); Lymphocytes Absolute Auto 2000 /uL (1100-4500); Lymphocytes Percent Auto 23.4 % (25-40); Mean Corpuscular HGB Conc 33.6 % (30-36); Mean Corpuscular Hemoglobin 29.9 PG (26-34); Mean Corpuscular Volume 88.9 fL (80-100); Monocytes Absolute Auto 800 /uL (0-900); Monocytes Percent Auto 9.5 % (3-14); Neutrophils Absolute Auto 5300 /uL (1500-7000); Platelet Count 441 X10^3/uL (150-400); Red Blood Cell Count 2.94 X10^6/uL (4.0-5.2); Red Cell Distribution Width 14.3 % (11.6-14.8); White Blood Cell Count 8.5 X10^3/uL (4.5-11.0)
[2021-09-20 05:39] LABS: BUN Creatinine Ratio 16.7 (6-22); Blood Urea Nitrogen 21 mg/dL (7-17); Calcium 9.2 mg/dL (8.4-10.2); Carbon Dioxide 28 mmol/L (22-32); Chloride 100 mmol/L (98-107); Estimated Glomerular Filt Rate 40.7 mL/min (>60); Glucose 82 mg/dL (80-110); HEMOLYSIS < 15 (0-50); Potassium 4.1 mmol/L (3.4-5.1); Sodium 129 mmol/L (137-145)
[2021-09-20] MEDS: ENOXAPARIN 30 MG/0.3 ML SYRINGE SUBCUT (10:21)
[2021-09-20] MEDS: LOSARTAN 25 MG TABLET PO ×2 (10:21→21:12)
[2021-09-20] MEDS: BACLOFEN 10 MG TABLET PO ×3 (10:22→21:13)
--- NOTE | 2021-09-20 13:55 | PT.IPTN ---
Current Diagnoses Pressure ulcer of sacral region, stage 3 (09/18/21) Physical Therapy Treatment Note M2 PT-IP Current Condition Start: 09/19/21 13:02 Freq: NEEDED Status: Active Protocol: Document 09/19/21 10:46 AB (Rec: 09/19/21 13:17 AB [id number]) Physical Therapy Current Condition Current Condition Evaluation Date 09/19/21 Treatment Diagnosis sacral ulcer; generalized weakness Onset Date 09/18/21 M3 PT-IP Subjective Start: 09/19/21 13:02 Freq: NEEDED Status: Active Protocol: Document 09/20/21 13:55 AB (Rec: 09/20/21 17:17 AB [id number]) Subjective Physical Therapy Visit Type Type Treatment Note Visit Start Time 13:55 Visit Stop Time 14:21 Total Visit Minutes 26 Number of MOLDER HELPER Visits 0 Physical Therapy Visit Comments Patient Comments able to make needs known M4 PT-IP Mobility and Gait Start: 09/19/21 13:02 Freq: NEEDED Status: Active Protocol: Document 09/20/21 13:55 AB (Rec: 09/20/21 17:17 AB [id number]) PT-Bed Mobility Assessment Supine to Sit Supine to Sit Maximum Assistance,1 Person Assistance,2 Person Assistance ,Head of Bed Elevated Sit to Supine Sit to Supine Maximum Assistance,2 Person Assistance,Head of Bed Elevated,Bedrails Scooting Scooting Up and Down in Bed Dependent PT-Transfer Assessment Comments Mobility Comments completed LE exercises in supine. heel slides on LLE , PROM to AAROM on RLE. completed supine to sit max Ax 1-2 and max cues with HOB elevated and pt used bed rail for support. max A for sitting balance on EOB. total A for positioning. completed sitting balance activities: static sitting with increase COG awareness. pt initially requiring max A with use of UE support. able to maintain sitting balance with UE support SBA for ~ 10 sec: repeated x 5. educated pt on sitting balance, trunk muscle use and COG again. completed sitting balance on EOB CGA without UE support ~ 5 sec. pt requested to go back to bed . complete sit to supine max A x 2 and max cues. total A x 2 for positioning in bed. call light and table placed within reach. PT-Balance Assessment Sitting Balance and Reactions Static Sitting Balance Ability Poor Dynamic Sitting Balance Ability Poor M5 PT-IP Objective Assessments Start: 09/19/21 13:02 Freq: NEEDED Status: Active Protocol: Document 09/19/21 10:46 AB (Rec: 09/19/21 13:17 AB [id number]) Orientation Orientation/Cognition Level of Alertness Alert Language Function Ability Hard of Hearing Safety Awareness Decreased Safety Awareness Memory Description Short Term Impaired Gross Range of Motion Lower Extremity ROM Assessment Bilaterally Impaired Impairments ankle tightness Strength Lower Extremity Strength Assessment Bilaterally Impaired Comments Strength Comments LLE: 3-/5 RLE: 2-/5 M6 PT-IP Treatment Start: 09/19/21 13:02 Freq: NEEDED Status: Active Protocol: Document 09/20/21 13:55 AB (Rec: 09/20/21 17:17 AB [id number]) Physical Therapy Treatment Education Education Provided Safety M7 PT-IP Assessment and Plan Start: 09/19/21 13:02 Freq: NEEDED Status: Active Protocol: Document 09/20/21 13:55 AB (Rec: 09/20/21 17:17 AB [id number]) PT Summary Assessment and Plan Potential Rehabilitation Potential Fair Summary Impairments Pain,ROM,Strength,Balance, Coordination,Sensation,Tone, Cognition,Bed Mobility, Transfers,Gait,Activity Tolerance Progress Towards Goals Slow Progress due to Medical Issues,Slow Progress due to Activity Tolerance Assessment Summary pt continues to require max A x 2 for mobility. continues to have P sitting balance/trunk controll affecting mobility level. pt will require SNF rehab to improve strength and function. Goals Bed Mobility Goal Moderate Assistance Transfer Goal Moderate Assistance,Front Wheeled Walker Other Goals improve sitting balance dynamic to F improve standing balance to F- Days to Meet Goals 10 Frequency of Treatment Frequency Of Treatment Once a Day Treatment Plan Physical Therapy Treatment Plan Bed Mobility Training,Transfer Training,Gait Training, Therapeutic Exercise,Balance Retraining,Discharge Planning, Hot or Cold Pack,Neuromuscular Re-ed,Coordination Retraining ,Manual Therapy Precautions Other Precautions falls; sacral wound Recommendations To Nursing Amount of Assist Needed Total Assistance,Mechanical Lift Discharge Recommendations PT Discharge Recommendations SNF Rehab Transportation Needs at Discharge Wheelchair/Cabulance,Stretcher /Ambulance
--- NOTE | 2021-09-20 14:55 | OT.IPNOTE ---
Attempted to see pt for OT, pt states just completed PT earlier and not wanting to get up again. Able to explain to pt what OT is and pt able to wash her face after set-up. Assisted to wash pt's glasses. No charge.
--- NOTE | 2021-09-20 15:07 | P.PN_ITS ---
Subjective Subjective Date Patient Seen: 09/20/21 Time Patient Seen: 15:08 Interval history: 80 year old female admitted with hyponatremia, TASH, anemia, worsening weakness and sacral decubitus ulcers. She denies any pain today, feels quite well but still needs much assistance and is very weak. Exam Vital Signs (past 8 hours): - 09/20/21 07:58 09/20/21 10:21 09/20/21 11:00 Temperature 98.1 F Pulse Rate 98 H Respiratory Rate 18 Blood Pressure 140/55 L 140/55 L Pulse Oximetry 95 95 09/20/21 12:00 Temperature 98.4 F Pulse Rate 77 Respiratory Rate 18 Blood Pressure 168/73 H Pulse Oximetry 97 Oxygen Delivery Method Room Air Oxygen Flow Rate 0 Narrative Exam Narrative: General:? Patient is well developed and well nourished elderly female in no distress at this time. HEENT:? Normocephalic, atraumatic, extraocular muscles intact, oral pharynx is clear and mucous membranes are moist. Lungs:? CTA b/l no wheezing rhonchi or rales. Cardio:?RRR with a 3/6 systolic murmur, no rubs or gallops. Abdomen: S NT ND. Musculoskeletal:? Muscle strength and tone are equal bilaterally but she is diffusely weak.? There is no joint tenderness. Extremities:? Mild pretibial edema bilaterally, with mild erythema of the right lower extremity without warmth or tenderness.? No Joint effusions. No cyanosis or clubbing. Neuro:? Alert, confused with poor short-term memory.? Sensation to touch intact in all extremities, no gross deficits noted of cranial nerves. Psych:? Patient has a well-kept appearance, appropriate affect, mental status attitude thought context and judgment are appropriate for age. Objective Labs Result Diagrams: 09/20/21 04:59 09/20/21 04:59 Labs: Laboratory Results - last 24 hr 09/20/21 09/20/21 04:59 04:59 WBC 8.5 RBC 2.94 L Hgb 8.8 L Hct 26.2 L MCV 88.9 MCH 29.9 MCHC 33.6 RDW 14.3 Plt Count 441 H Neut % (Auto) 62.0 Lymph % (Auto) 23.4 L Crawford % (Auto) 9.5 Eos % (Auto) 3.8 Baso % (Auto) 1.3 Neut # (Auto) 5300 Lymph # (Auto) 2000 Crawford # (Auto) 800 Eos # (Auto) 300 Baso # (Auto) 100 Sodium 129 L Potassium 4.1 Chloride 100 Carbon Dioxide 28 BUN 21 H Creatinine 1.26 H Estimated GFR 40.7 L BUN/Creatinine Ratio 16.7 Glucose 82 Calcium 9.2 PFSH Medical History Aortic stenosis Foot fracture, left Hypertension Neurogenic bladder Sciatica Trigeminal neuralgia Surgical History History of bowel resection History of carpal tunnel surgery History of hip replacement Family History (Updated 09/18/21 @ 17:36 by Lee Freire DO) Mother Hypertension Father Hypertension Social History household members: children Smoking Status: Never smoker Assessment & Plan Assessment & Plan narrative: This is an 80-year-old female with a past medical history of severe aortic stenosis, hypertension, trigeminal neuralgia, and probable dementia (not diagnosed formally) who was brought into the emergency room by her daughter over increasing concerns of her sacral wound and pain. 1. Stage III and stage II sacral pressure ulcers, acute, present on admission ?- continue local wound care and dressing per nursing protocols. ?- outpatient wound care referral on discharge. ?- does not appear to be actively infected, however wound cultures is poly microbial. Consider therapy once finalized depending on speciation and sensitivities. ?- frequent turning and repositioning. ?- can continue home tramadol and baclofen for pain. Try to avoid opiates or benzos for pain given age. ? 2. TASH, improving. ?- creatnine 1.36 on admission, baseline appears to be around 0.8 previously. 1.26 today. Multiple issues with IV line will encourage PO fluids today and continue to monitor. 3. Hyponatremia, ?- likely in setting of decreased PO intake. Be cautious with fluids given aortic stenosis. -issues with IV line, will encourage PO intake and continue to monitor. Na slightly improved to 129. 4. severe aortic stenosis ?- no current indication for repeat echo, continue home medications other than diuretic given TASH and dehydration. ?- no current shortness of breath or chest pain. 5. HTN ?- hold home diuretic as noted above. can continue home losartan. 6. Cognitive impairment, dementia. ?- daughter reports worsening confusion over the past 4 months. May be related to hyponatremia, anemia, dehydration but suspect dementia. ?- TSH unremarkable. B12 608. ?- OT evaluation with SLUMS of between 12 and 16 indicating cognitive impairment. 7. Anemia, unknown chronicity ?- Hg 9.6 from last lab values of near 12. Possibly from internal hemorrhoids per history. Declined to 8.1 without symptoms but today is 8.8. Will stop monitoring for now. Dispo : remains inpatient, plan for SNF on discharge. DVT: Lovenox daily Code: DNR, daughter is POA and surrogate decision maker. I have utilized all available immediate resources to obtain, update, or review the patient's current medications.? Time Spent With Patient Critical Care time: I spent a total of [] minutes of critical care time on this patient's care today; this time is exclusive of procedural time.
--- NOTE | 2021-09-20 15:11 | PC.NURSE ---
Pt resting at intervals. Denies discomfort. Lungs clear, SpO2 96% RA Dsg to wound intact. all light w/in reach, bed alarm on for pt safety. Continue w/plan of care,
--- NOTE | 2021-09-20 16:46 | CM.DPNOTE ---
DCP Note Referrals faxed to [facility] and [facility]. Clinical faxed to trey Mcrae CM at [facility] says they are not a preferred building so try [facility] and [facility] first Patient would benefit from SNF stay; referrals faxed. Needs f/u. PASRR completed. Faxed completed and signed [facility] Ztail cipriano yesterday w/expedited request for review to [facility] JW
[2021-09-20] MEDS: TRAMADOL 50 MG TABLET PO (21:19)
[2021-09-21] VITALS (8 sets, daily range): BP systolic 110–135; BP diastolic 49–79; PULSE 75–87; RESP 17–19; TEMP 36.4–37; O2SAT 96–98
[2021-09-21 06:53] LABS: Add Manual Diff / Slide Review NO; Basophils Absolute Auto 100 /uL (0-100); Eosinophils Absolute Auto 200 /uL (0-450); Eosinophils Percent Auto 2.7 % (2-4); Hematocrit 25.2 % (36-46); Hemoglobin 8.4 g/dL (12.0-16.0); Lymphocytes Absolute Auto 1600 /uL (1100-4500); Lymphocytes Percent Auto 18.4 % (25-40); Mean Corpuscular HGB Conc 33.4 % (30-36); Mean Corpuscular Hemoglobin 29.6 PG (26-34); Mean Corpuscular Volume 88.5 fL (80-100); Monocytes Absolute Auto 900 /uL (0-900); Neutrophils Absolute Auto 6100 /uL (1500-7000); Neutrophils Percent Auto 67.9 % (50-75); Platelet Count 438 X10^3/uL (150-400); Red Blood Cell Count 2.84 X10^6/uL (4.0-5.2); Red Cell Distribution Width 14.1 % (11.6-14.8); White Blood Cell Count 8.9 X10^3/uL (4.5-11.0)
[2021-09-21 07:13] LABS: BUN Creatinine Ratio 15.2 (6-22); Blood Urea Nitrogen 20 mg/dL (7-17); Carbon Dioxide 26 mmol/L (22-32); Chloride 103 mmol/L (98-107); Estimated Glomerular Filt Rate 38.5 mL/min (>60); Glucose 91 mg/dL (80-110); HEMOLYSIS < 15 (0-50); Potassium 3.9 mmol/L (3.4-5.1); Sodium 132 mmol/L (137-145)
--- NOTE | 2021-09-21 08:03 | P.PN_ITS ---
Subjective Subjective Date Patient Seen: 09/21/21 Interval history: She is seen today to follow-up her sacral ulcer, weakness and cognitive dysfunction. The ELECTRONIC ENGRAVER is changing her brief during my examination. She has passed a large amount of stool which is contaminating the wound, undermining the dressing. She now has evidence of wound infection with redness around the edges of this vandnaa shaped ?Enrique type? ulcer. Exam Vital Signs (past 8 hours): - 09/21/21 02:27 09/21/21 06:18 Temperature 98.1 F 97.6 F Pulse Rate 82 87 Respiratory Rate 17 17 Blood Pressure 120/58 L 110/73 Pulse Oximetry 96 96 Oxygen Delivery Method Room Air Oxygen Flow Rate 0 Narrative Exam Narrative: She is alert and oriented to her name. No apparent distress. She is tolerating being turned on her side while her brief is being changed and her sacral area is being clean. Heart is regular rate and rhythm without murmur Lungs are clear to auscultation bilaterally Extremities have no ankle edema Skin: Vandana shaped ?Enrique? ulcer of the mid sacrum. There is thin yellow eschar and surrounding 2 mm rim of redness. Objective Labs Result Diagrams: 09/21/21 06:36 09/21/21 06:36 Labs: Laboratory Results - last 24 hr 09/21/21 09/21/21 06:36 06:36 WBC 8.9 RBC 2.84 L Hgb 8.4 L Hct 25.2 L MCV 88.5 MCH 29.6 MCHC 33.4 RDW 14.1 Plt Count 438 H Neut % (Auto) 67.9 Lymph % (Auto) 18.4 L [place] % (Auto) 10.0 Eos % (Auto) 2.7 Baso % (Auto) 1.0 Neut # (Auto) 6100 Lymph # (Auto) 1600 [place] # (Auto) 900 Eos # (Auto) 200 Baso # (Auto) 100 Sodium 132 L Potassium 3.9 Chloride 103 Carbon Dioxide 26 BUN 20 H Creatinine 1.32 H Estimated GFR 38.5 L BUN/Creatinine Ratio 15.2 Glucose 91 Calcium 9.0 PFSH Medical History Aortic stenosis Foot fracture, left Hypertension Neurogenic bladder Sciatica Trigeminal neuralgia Surgical History History of bowel resection History of carpal tunnel surgery History of hip replacement Family History (Updated 09/18/21 @ 17:36 by Lee Freire DO) Mother Hypertension Father Hypertension Social History household members: children Smoking Status: Never smoker Assessment & Plan Assessment & Plan narrative: This is an 80-year-old female with a past medical history of severe aortic stenosis, hypertension, trigeminal neuralgia, and probable dementia (not diagnosed formally) who was brought into the emergency room by her daughter over increasing concerns of her sacral wound and pain. 1. Stage III and stage II sacral pressure ulcers, acute, present on admission ?- continue local wound care and dressing per nursing protocols. ?- outpatient wound care referral on discharge. ?- did not initially appear to be actively infected, however wound cultures are positive for Enterococcus/Pseudomonas/E.coli and the edges are noted to be red on 09/21. - started on Zosyn IV on 09/21. ?- frequent turning and repositioning. Easily contaminated by stool - as seen on 09/21. ?- can continue home tramadol and baclofen for pain. Try to avoid opiates or benzos for pain given age. ? 2. TASH, improving. ?- creatinine 1.36 on admission, baseline appears to be around 0.8 previously. 1.32 today. Multiple issues with IV line will encourage PO fluids today and continue to monitor. 3. Hyponatremia, ?- likely in setting of decreased PO intake. Be cautious with fluids given aortic stenosis. - issues with IV line, will encourage PO intake and continue to monitor. Na improved to 132. 4. severe aortic stenosis ?- no current indication for repeat echo, continue home medications other than diuretic given TASH and dehydration. ?- no current shortness of breath or chest pain. 5. HTN ?- hold home diuretic as noted above. can continue home losartan. 6. Cognitive impairment, dementia. ?- daughter reports worsening confusion over the past 4 months. May be related to hyponatremia, anemia, dehydration but suspect dementia. ?- TSH unremarkable. B12 608. ?- OT evaluation with SLUMS of between 12 and 16 indicating cognitive impairment. 7. Anemia, unknown chronicity ?- Hg 9.6 from last lab values of near 12. Possibly from internal hemorrhoids per history. Declined to 8.1 without symptoms but today is 8.4. Will stop monitoring for now. Dispo : remains inpatient, plan for SNF on discharge. DVT: Lovenox daily Code: DNR, daughter is POA and surrogate decision maker. Time Spent With Patient Critical Care time: I spent a total of [] minutes of critical care time on this patient's care today; this time is exclusive of procedural time.
[2021-09-21] MEDS: ENOXAPARIN 30 MG/0.3 ML SYRINGE SUBCUT (09:34)
[2021-09-21] MEDS: BACLOFEN 10 MG TABLET PO ×3 (09:34→22:01)
[2021-09-21] MEDS: LOSARTAN 25 MG TABLET PO ×2 (09:34→22:00)
--- NOTE | 2021-09-21 10:45 | PT.IPTN ---
Current Diagnoses Pressure ulcer of sacral region, stage 3 (09/18/21) Physical Therapy Treatment Note M2 PT-IP Current Condition Start: 09/19/21 13:02 Freq: NEEDED Status: Active Protocol: Document 09/19/21 10:46 AB (Rec: 09/19/21 13:17 AB [email or web address]) Physical Therapy Current Condition Current Condition Evaluation Date 09/19/21 Treatment Diagnosis sacral ulcer; generalized weakness Onset Date 09/18/21 M3 PT-IP Subjective Start: 09/19/21 13:02 Freq: NEEDED Status: Active Protocol: Document 09/21/21 10:45 AB (Rec: 09/21/21 12:27 AB [email or web address]) Subjective Physical Therapy Visit Type Type Treatment Note Visit Start Time 10:45 Visit Stop Time 11:12 Total Visit Minutes 37 Number of PRECISION INSTRUMENT AND TOOL MAKER Visits 0 Physical Therapy Visit Comments Patient Comments agreed to do PT; refused to stand M4 PT-IP Mobility and Gait Start: 09/19/21 13:02 Freq: NEEDED Status: Active Protocol: Document 09/21/21 10:45 AB (Rec: 09/21/21 12:27 AB [email or web address]) PT-Bed Mobility Assessment Supine to Sit Supine to Sit Maximum Assistance,1 Person Assistance,2 Person Assistance ,Head of Bed Elevated Sit to Supine Sit to Supine Maximum Assistance,2 Person Assistance Scooting Scooting to Edge of Bed Dependent PT-Transfer Assessment Comments Mobility Comments Co-tx wtih OT due to pt's complex needs for mobility: one therapist assisting with movement and another assisting with balance and stability. completed BLE exerices prior to mobility: AROM LLE and PROM /AAROM on RLE: heel slides, ankle DF/PF, hip stretching in abduction. pt completed supine to sit HOB elevated max A x 1-2 and max cues. pt sat on EOB max A for steadiness. pt either has increase posterior trunk lean or too far forward and needs cued to correct. sitting balance activity on EOB. cued for posture and body orientation/COG, static sitting balance and pt able to hold with UE support ~ 3 sec repeated a few times with cues . pt stated that she is tired. pt sitting on EOB with PT in front and OT stabilizing pt's posterior side. Dynamic sitting balance activity: reaching with UE in different directions and encourage for trunk ms control and use. pt assisted back to bed and required max A x 2 and max cues. positioned pt in bed. infomred SEED CORN PRODUCTION MANAGER that pt needs to be cleaned up and changed. Left pt with NAC. PT-Balance Assessment Sitting Balance and Reactions Static Sitting Balance Ability Poor Dynamic Sitting Balance Ability Poor M5 PT-IP Objective Assessments Start: 09/19/21 13:02 Freq: NEEDED Status: Active Protocol: Document 09/19/21 10:46 AB (Rec: 09/19/21 13:17 AB [id number]) Orientation Orientation/Cognition Level of Alertness Alert Language Function Ability Hard of Hearing Safety Awareness Decreased Safety Awareness Memory Description Short Term Impaired Gross Range of Motion Lower Extremity ROM Assessment Bilaterally Impaired Impairments ankle tightness Strength Lower Extremity Strength Assessment Bilaterally Impaired Comments Strength Comments LLE: 3-/5 RLE: 2-/5 M6 PT-IP Treatment Start: 09/19/21 13:02 Freq: NEEDED Status: Active Protocol: Document 09/21/21 10:45 AB (Rec: 09/21/21 12:27 AB [id number]) Physical Therapy Treatment Education Education Provided Safety M7 PT-IP Assessment and Plan Start: 09/19/21 13:02 Freq: NEEDED Status: Active Protocol: Document 09/21/21 10:45 AB (Rec: 09/21/21 12:27 AB [email or web address]) PT Summary Assessment and Plan Potential Rehabilitation Potential Fair Summary Impairments Pain,ROM,Strength,Balance, Coordination,Sensation,Tone, Cognition,Bed Mobility, Transfers,Gait,Activity Tolerance Progress Towards Goals Slow Progress due to Medical Issues,Slow Progress due to Activity Tolerance,Slow Progress - Other Assessment Summary pt continues to require max A x 2 to total A with mobility and will require SNF rehab to improve strength and function. Goals Bed Mobility Goal Moderate Assistance Transfer Goal Moderate Assistance,Front Wheeled Walker Other Goals improve sitting balance dynamic to F improve standing balance to F- Days to Meet Goals 10 Frequency of Treatment Frequency Of Treatment Once a Day Treatment Plan Physical Therapy Treatment Plan Bed Mobility Training,Transfer Training,Gait Training, Therapeutic Exercise,Balance Retraining,Discharge Planning, Hot or Cold Pack,Neuromuscular Re-ed,Coordination Retraining ,Manual Therapy Precautions Other Precautions falls; sacral wound Recommendations To Nursing Amount of Assist Needed Total Assistance,Mechanical Lift Discharge Recommendations PT Discharge Recommendations SNF Rehab Transportation Needs at Discharge Wheelchair/Cabulance,Stretcher /Ambulance
--- NOTE | 2021-09-21 11:12 | OT.IP.TRT ---
Current Diagnoses Pressure ulcer of sacral region, stage 3 (09/18/21) Occupational Therapy Treatment Note M2 OT-IP Current Condition Start: 09/19/21 13:38 Freq: Status: Active Protocol: Document 09/19/21 12:20 [facility] (Rec: 09/19/21 14:01 [facility] [id number]) Occupational Therapy Current Condition Current Condition Evaluation Date 09/19/21 Treatment Diagnosis Sacral Ulcer, decreased mobility Diagnosis Onset Date 09/18/21 M3 OT- IP Subjective and Pain Start: 09/19/21 13:38 Freq: Status: Active Protocol: Document 09/21/21 12:07 [facility] (Rec: 09/21/21 12:23 [facility] [id number]) OT- Subjective Occupational Therapy Visit Type Type Treatment Note Visit Start Time 10:45 Visit Stop Time 11:12 Total Visit Minutes 27 Notes Cotxt with PT for static and dynamic balance. Occupational Therapy Visit Comments Patient Comments Pt agreed to get up. Patient/Caregiver Goals To get better. OT Pain Assessment Pain When Pain Assessed At Rest Pain Present Pain Present Denied Pain M4 OT- IP ADL's Start: 09/19/21 13:38 Freq: Status: Active Protocol: Document 09/21/21 12:07 [facility] (Rec: 09/21/21 12:23 [facility] [id number]) OT ADL-Grooming General Evaluation Areas Needing Assistance Retrieving/Set-up of Grooming Items,Combing/Brushing Hair Comments OT Grooming Comments Pt able to wash her face after set-up of wash cloth. Pt able to brush the sides of her hair while in bed and needing assist to brush the back of her head as pt able to sit with BENJIE at the edge of the bed. OT ADL-Dressing Comments OT Dressing Comments Total assist at this time. OT ADL-Toileting Comments OT Toileting Comments Called in nursing aid as pt needing a brief change. OT ADL-Bathing Comments OT Bathing Comments Sponge bath more appropriate at this time. . OT- Vision and Hearing OT- Hearing Assessment OT- Hearing Assessment Hearing Impaired OT- Vision Assessment Visual Acuity Glasses All The Time M7 OT- IP Mobility and Balance Start: 09/19/21 13:38 Freq: Status: Active Protocol: Document 09/21/21 12:07 [facility] (Rec: 09/21/21 12:23 [facility] [id number]) OT-Transfer Assessment Comments Mobility Comments PT able to get pt up with MAX X 1 with HOB up and MAX A X2 from sit to supine. OT- Balance Assessment Sitting Balance and Reactions Static Sitting Balance Ability Poor Dynamic Sitting Balance Ability Poor Comments Other Balance Tests/Deviations/Treatment Pt working with OT/PT for : trunk control while seated on the edge of the bed with foot stool underneath the pt's feet. M8 OT- IP Objective Assessments Start: 09/19/21 13:38 Freq: Status: Active Protocol: Document 09/19/21 12:20 [facility] (Rec: 09/19/21 14:01 [facility] [id number]) OT Gross Range of Motion Upper Extremity Range of Motion Assessment Bilaterally Impaired OT Strength Upper Extremity Strength Assessment Bilaterally Impaired OT- Coordination Assessment Comments Coordination Comments Arthritic changes in hands R>L and unable to open her right hand. M9 OT- IP Assessment and Plan Start: 09/19/21 13:38 Freq: Status: Active Protocol: Document 09/21/21 12:07 [facility] (Rec: 09/21/21 12:23 [facility] [id number]) OT Summary Assessment and Plan Potential Rehabilitation Potential Fair Analytic Complexity at Evaluation Moderate Summary OT Impairments Pain,Range of Motion,Strength, Balance,Coordination, Functional Cognition, Functional Mobility,Grooming, Toilet Transfers Progress Towards Goals Slow Progress due to Medical Issues,Slow Progress due to Activity Tolerance,Slow Progress due to Cognition Assessment Summary Pt cooperative and willing to work with OT/PT on static and dynamic sitting balance. Pt will continue to benefit from going to skilled rehab to work on trunk control and midline so hopefully able to get back to stand pivot transfers in which she was doing at home with her daughter. Goals Self-Feeding Goal Standby Assistance Grooming Goal Standby Assistance Toilet Transfer Goal Moderate Assistance OT-Other Goals Pt to be able to sit at the edge of the bed with feet supported in order to do grooming needs with SBA for balance. Days to Meet Goals 39 Frequency of Treatment Frequency Of Treatment Once a Day Treatment Plan OT Treatment Plan ADL Training,Functional Cognition Training,Functional Mobility,Patient/Family Education,Discharge Planning Discharge Recommendations OT Discharge Recommendations SNF Rehab Transportation Needs at Discharge Stretcher/Ambulance
--- NOTE | 2021-09-21 11:48 | CM.DANOTE ---
Addendum entered by Ashley Avila 09/22/21 09:07: Spoke with Farhana at [facility] this AM. She reports that they cannot accept because they do not have any termite exterminator beds once skilled care completed. Referrals sent to both [facility]. JOON Original Note: DCP/continued: Received call from Farhana at [facility], she reports that they are unable to accommodate this patient for SNF at time of d/c. LAND CONSERVATION SPECIALIST placed call to admit at [facility]. They are currently unable to accommodate. Therefore, placed call to [facility] and they report that they will let us know. In addition, faxed to both [place] contracted facilities [facility] and [facility]. CM team following closely. P: D/C to SNF when medically stable and facility can be found. Also need [place] authorization.
[2021-09-21] MEDS: PIPERACILLIN/TAZO 3.375 GM in SODIUM CHLORIDE 0.9% 100 ML 25 ML IV ×2 (13:34→22:01)
[2021-09-21] MEDS: TRAMADOL 50 MG TABLET PO (22:04)
[2021-09-22] MEDS: PIPERACILLIN/TAZO 3.375 GM in SODIUM CHLORIDE 0.9% 100 ML 25 ML IV ×3 (05:08→20:51)
[2021-09-22 06:23] VITALS: BP 123/59; PULSE 66; RESP 18; TEMP 36.8; O2SAT 98
[2021-09-22] MEDS: ENOXAPARIN 30 MG/0.3 ML SYRINGE SUBCUT (08:38)
[2021-09-22] MEDS: LOSARTAN 25 MG TABLET PO ×2 (08:38→20:50)
[2021-09-22] MEDS: BACLOFEN 10 MG TABLET PO ×3 (08:39→20:50)
[2021-09-22 08:46] VITALS: BP 120/52; PULSE 63; RESP 17; TEMP 36.3; O2SAT 98
--- NOTE | 2021-09-22 14:02 | PT-IP ANOTE ---
Pt asleep when CANAL EQUIPMENT MAINTENANCE SUPERVISOR attempted to perform treatment at 14:02.
--- NOTE | 2021-09-22 15:14 | P.PN_ITS ---
Subjective Subjective Date Patient Seen: 09/22/21 Time Patient Seen: 08:00 Interval history: Today she feels well, she has no complaints. Exam Vital Signs (past 8 hours): - 09/22/21 08:46 Temperature 97.4 F L Pulse Rate 63 Respiratory Rate 17 Blood Pressure 120/52 L Pulse Oximetry 98 Oxygen Delivery Method Room Air Oxygen Flow Rate 0 Narrative Exam Narrative: No acute distress CV regular rate and rhythm without murmur PULM: clear to auscultation bilaterally EXT: no edema Skin:? Stage 2-3 sacral ulcer with mild erythema Objective Labs Result Diagrams: 09/21/21 06:36 09/21/21 06:36 [facility] Medical History Aortic stenosis Foot fracture, left Hypertension Neurogenic bladder Sciatica Trigeminal neuralgia Surgical History History of bowel resection History of carpal tunnel surgery History of hip replacement Family History (Updated 09/18/21 @ 17:36 by Lee Freire DO) Mother Hypertension Father Hypertension Social History household members: children Smoking Status: Never smoker Assessment & Plan Assessment & Plan narrative: 80W with PMH severe aortic stenosis, hypertension, trigeminal neuralgia, and probable dementia who was brought into the emergency room by her daughter over increasing concerns of her sacral wound and pain. 1. Stage III and stage II sacral pressure ulcers, acute, present on admission ?- continue local wound care and dressing per nursing protocols. ?- outpatient wound care referral on discharge. ?- did not initially appear to be actively infected, however wound cultures are positive for Enterococcus/Pseudomonas/E.coli and the edges are noted to be red on 09/21. ?- started on Zosyn IV on 09/21, can transition to oral on discharge plan for likely levofloxacin and augmentin for 7 day course ?- frequent turning and repositioning.? Easily contaminated by stool - as seen on 09/21. ?- can continue home tramadol and baclofen for pain. Try to avoid opiates or benzos for pain given age. ? 2. TASH, improving. ?- creatinine 1.36 on admission, baseline appears to be around 0.8 previously. Multiple issues with IV line will encourage PO fluids today and continue to monitor. 3. Hyponatremia, ?- likely in setting of decreased PO intake. Be cautious with fluids given aortic stenosis. - issues with IV line, will encourage PO intake and continue to monitor. Na improved to 132. 4. severe aortic stenosis ?- no current indication for repeat echo, continue home medications other than diuretic given TASH and dehydration. ?- no current shortness of breath or chest pain. 5. HTN ?- hold home diuretic as noted above. can continue home losartan. 6. Cognitive impairment, dementia. ?- daughter reports worsening confusion over the past 4 months. May be related to hyponatremia, anemia, dehydration but suspect dementia. ?- TSH unremarkable. B12 608. ?- OT evaluation with SLUMS of between 12 and 16 indicating cognitive impairment. 7. Anemia, unknown chronicity ?- Hg 9.6 from last lab values of near 12. Possibly from internal hemorrhoids per history. Declined to 8.1 without symptoms but today is 8.4. Will stop monitoring for now. Dispo: She is medically stable for discharge and awaits placement in SNF DVT: Lovenox daily Code: DNR, daughter is POA and surrogate decision maker. Time Spent With Patient Critical Care time: I spent a total of [] minutes of critical care time on this patient's care today; this time is exclusive of procedural time.
[2021-09-22 18:00] VITALS: BP 92/51; PULSE 76; RESP 19; TEMP 37.1; O2SAT 97
[2021-09-22 20:40] VITALS: BP 102/51; PULSE 75; RESP 19; TEMP 36.2; O2SAT 96
[2021-09-22 20:50] VITALS: BP 102/51; PULSE 75
[2021-09-22] MEDS: TRAMADOL 50 MG TABLET PO (20:54)
[2021-09-23] VITALS (10 sets, daily range): BP systolic 90–135; BP diastolic 43–87; PULSE 58–76; RESP 16–20; TEMP 36.2–37.1; O2SAT 94–97
[2021-09-23] MEDS: PIPERACILLIN/TAZO 3.375 GM in SODIUM CHLORIDE 0.9% 100 ML 25 ML IV ×2 (05:26→13:17)
[2021-09-23 06:14] LABS: BUN Creatinine Ratio 16.1 (6-22); Blood Urea Nitrogen 22 mg/dL (7-17); Calcium 8.6 mg/dL (8.4-10.2); Carbon Dioxide 26 mmol/L (22-32); Chloride 104 mmol/L (98-107); Estimated Glomerular Filt Rate 36.9 mL/min (>60); Glucose 91 mg/dL (80-110); HEMOLYSIS < 15 (0-50); Potassium 4.2 mmol/L (3.4-5.1); Sodium 133 mmol/L (137-145)
--- NOTE | 2021-09-23 06:20 | PC.NURSE ---
Dressing to coccyx was change, wound was clean with NS. edges of wound are slightly red, no drainage or foul ordor to wound. will continue to monitor. pt was reposition every 2 hours tonight.
[2021-09-23] MEDS: SODIUM CHLORIDE 0.9% 1,000 ML 1000 ML IV (07:53)
[2021-09-23] MEDS: BACLOFEN 10 MG TABLET PO ×3 (09:55→20:37)
[2021-09-23] MEDS: ENOXAPARIN 30 MG/0.3 ML SYRINGE SUBCUT (09:55)
--- NOTE | 2021-09-23 12:07 | DIET.CONS ---
Dietary Consultation Note Admission Date: 09/18/2021 14:16 Assessment: 80y F admitted for sacral ulcers stage 2 and [address] for same and LOS day 5. Pt with dementia had been living c daughter who is now finding too difficult to care for pt. Pt with altered renal fxn which has persisted x5d with GFR 30-40 and creatinine 1.2-1.4. Pt awaiting skilled placement. Pts POs marginal to moderate 10-75%. RD to send ONS bid to support pts healing in renal friendly formula. Ht: 144.78 cm Wt: 50 kg BMI: 23.8 UBW: Last BM: 09/21/21 (09/21/21 20:19) MNA: Delmer Score: 23 Diet: 09/19/21 Dinner General (Regular) Diet Diet Modifications: Nutrition Percent Meal Consumed 20 09/23/21 09:24 Percent Meal Consumed 75% 09/22/21 17:45 Percent Meal Consumed 50% 09/22/21 13:58 Percent Meal Consumed 50% 09/21/21 18:45 Percent Meal Consumed 10% 09/21/21 13:15 Labs: RBC 2.84 X10^6/uL (4.0-5.2) L 09/21/21 06:36 Hgb 8.4 g/dL (12.0-16.0) L 09/21/21 06:36 Hct 25.2 % (36-46) L 09/21/21 06:36 Creatinine 1.37 mg/dL (0.52-1.04) H 09/23/21 05:35 Lactate 0.9 mmol/L (0.7-2.1) 09/18/21 12:50 Nutrition Diagnosis: poor wound healing r/t inadequate protein intake aeb pt with sacral ulcers since 2020 now at stage 2 and 3, pts POs this hospitalization 10-75%. Interventions: 1. Send ONS Nepro bid to support wound healing in renal friendly formula. EER: 55g PRO Monitoring/Evaluations: ONS tolerance, POs Electronically Signed by: Carey Lundberg 09/23/21 12:07 Clinical Dietitian [address] [address]
--- NOTE | 2021-09-23 12:46 | OT.IPNOTE ---
Attempted to see pt with PROFESSOR OF ART. Pt refused any out of bed activity at this time stating that her IV would quit working. This writer editor was unable to convince pt that it would be ok to sit up. Pt agreeable to LB exercises only with P.T. No OT services rendered.
--- NOTE | 2021-09-23 13:03 | PT.IPTN ---
Current Diagnoses Acute kidney failure, unspecified (09/18/21) Physical Therapy Treatment Note M2 PT-IP Current Condition Start: 09/19/21 13:02 Freq: NEEDED Status: Active Protocol: Document 09/19/21 10:46 AB (Rec: 09/19/21 13:17 AB [id number]) Physical Therapy Current Condition Current Condition Evaluation Date 09/19/21 Treatment Diagnosis sacral ulcer; generalized weakness Onset Date 09/18/21 M3 PT-IP Subjective Start: 09/19/21 13:02 Freq: NEEDED Status: Active Protocol: Document 09/23/21 12:49 KS (Rec: 09/23/21 13:19 KS [id number]) Subjective Physical Therapy Visit Type Type Treatment Note Visit Start Time 12:49 Visit Stop Time 13:03 Total Visit Minutes 14 Number of CRAYON GRADER Visits 1 Physical Therapy Visit Comments Patient Comments agreed to do PT; adamantly refused to stand or sit EOB M4 PT-IP Mobility and Gait Start: 09/19/21 13:02 Freq: NEEDED Status: Active Protocol: Document 09/23/21 12:49 KS (Rec: 09/23/21 13:19 KS [id number]) PT-Transfer Assessment Comments Mobility Comments Pt adamantly refused to sit EOB due to IV concerns but agreeable to LE exercises in bed. PROM BLE, pt then performed 1x10 resisted plantarflexion and dorsiflexion - unable to performed resisted dorsiflexion. She then attempted bilateral quad sets and glute sets but unable to successfully complete due to weakness. Able to lift LLE ~1/ 2 inch off bed and only able to complete x1. Gait Assessment Comments Gait Comments Unable M5 PT-IP Objective Assessments Start: 09/19/21 13:02 Freq: NEEDED Status: Active Protocol: Document 09/19/21 10:46 AB (Rec: 09/19/21 13:17 AB [id number]) Orientation Orientation/Cognition Level of Alertness Alert Language Function Ability Hard of Hearing Safety Awareness Decreased Safety Awareness Memory Description Short Term Impaired Gross Range of Motion Lower Extremity ROM Assessment Bilaterally Impaired Impairments ankle tightness Strength Lower Extremity Strength Assessment Bilaterally Impaired Comments Strength Comments LLE: 3-/5 RLE: 2-/5 M6 PT-IP Treatment Start: 09/19/21 13:02 Freq: NEEDED Status: Active Protocol: Document 09/23/21 12:49 KS (Rec: 03/14/22 13:19 KS [id number]) Physical Therapy Treatment Exercises Exercises Ankle Pumps,Gluteal Sets,Quad Sets,Straight Leg Raises Education Education Provided Safety Other Treatments Other Treatment Performed Resisted plantar/dorsiflexion, pt w/ bilateralt LE weakness, but R>L. PROM BLE. M7 PT-IP Assessment and Plan Start: 09/19/21 13:02 Freq: NEEDED Status: Active Protocol: Document 09/23/21 12:49 KS (Rec: 09/23/21 13:19 KS [id number]) PT Summary Assessment and Plan Potential Rehabilitation Potential Fair Summary Impairments Pain,ROM,Strength,Balance, Coordination,Sensation,Tone, Cognition,Bed Mobility, Transfers,Gait,Activity Tolerance Progress Towards Goals Slow Progress due to Medical Issues,Slow Progress due to Activity Tolerance,Slow Progress - Other Assessment Summary Pt refused EOB or OOB mobility , but able to do minimal LE exercises and PROM to promote blood flow and strengthening. Pt is very weak and will require SNF to improve strength and functional mobility. Goals Bed Mobility Goal Moderate Assistance Transfer Goal Moderate Assistance,Front Wheeled Walker Other Goals improve sitting balance dynamic to F improve standing balance to F- Days to Meet Goals 10 Frequency of Treatment Frequency Of Treatment Once a Day Treatment Plan Physical Therapy Treatment Plan Bed Mobility Training,Transfer Training,Gait Training, Therapeutic Exercise,Balance Retraining,Discharge Planning, Hot or Cold Pack,Neuromuscular Re-ed,Coordination Retraining ,Manual Therapy Precautions Other Precautions falls; sacral wound Recommendations To Nursing Amount of Assist Needed Total Assistance,Mechanical Lift Discharge Recommendations PT Discharge Recommendations SNF Rehab Transportation Needs at Discharge Wheelchair/Cabulance,Stretcher /Ambulance
--- NOTE | 2021-09-23 14:21 | PC.NURSE ---
waffle cushion placed, applied new allyvn. pt did ROM with PT, but refused to get up.
--- NOTE | 2021-09-23 16:41 | PM.PN.1 ---
Subjective Subjective Date Patient Seen: 09/23/21 Time Patient Seen: 08:00 Interval history: She has no complaints today. She denies any pain. Exam Vital Signs (past 8 hours): - 09/23/21 09:10 09/23/21 13:00 Pulse Rate 67 74 Respiratory Rate 16 Blood Pressure 109/50 L 109/62 Oxygen Delivery Method Room Air Oxygen Flow Rate 0 Narrative Exam Narrative: No acute distress CV regular rate and rhythm without murmur PULM: clear to auscultation bilaterally EXT: no edema Skin:? Stage 2-3 sacral ulcer with mild erythema Objective Labs Result Diagrams: 09/21/21 06:36 09/23/21 05:35 Labs: Laboratory Results - last 24 hr 09/23/21 05:35 Sodium 133 L Potassium 4.2 Chloride 104 Carbon Dioxide 26 BUN 22 H Creatinine 1.37 H Estimated GFR 36.9 L BUN/Creatinine Ratio 16.1 Glucose 91 Calcium 8.6 PFSH Medical History Aortic stenosis Foot fracture, left Hypertension Neurogenic bladder Sciatica Trigeminal neuralgia Surgical History History of bowel resection History of carpal tunnel surgery History of hip replacement Family History (Updated 09/18/21 @ 17:36 by Lee Freire DO) Mother Hypertension Father Hypertension Social History household members: children Smoking Status: Never smoker Assessment & Plan Assessment & Plan narrative: 80W with PMH severe aortic stenosis, hypertension, trigeminal neuralgia, and probable dementia who was brought into the emergency room by her daughter over increasing concerns of her sacral wound and pain. 1. Stage III and stage II sacral pressure ulcers, acute, present on admission ?- continue local wound care and dressing per nursing protocols. ?- outpatient wound care referral on discharge. ?- did not initially appear to be actively infected, however wound cultures are positive for Enterococcus/Pseudomonas/E.coli and the edges are noted to be red on 09/21. ?- started on Zosyn IV on 09/21, transitioned to orals on 09/23 with plan for at least 7 days of antibiotics through 09/27 ?- frequent turning and repositioning.? Easily contaminated by stool - as seen on 3/12. ?- can continue home tramadol and baclofen for pain. Try to avoid opiates or benzos for pain given age. ? 2. TASH, improving. ?- creatinine 1.36 on admission, baseline appears to be around 0.8 previously. Multiple issues with IV line will encourage PO fluids today and continue to monitor. 3. Hyponatremia, ?- likely in setting of decreased PO intake. Be cautious with fluids given aortic stenosis. - issues with IV line, will encourage PO intake and continue to monitor. Na improved to 132. 4. severe aortic stenosis ?- no current indication for repeat echo, continue home medications other than diuretic given TASH and dehydration. ?- no current shortness of breath or chest pain. 5. HTN ?- hold home diuretic as noted above. can continue home losartan. 6. Cognitive impairment, dementia. ?- daughter reports worsening confusion over the past 4 months. May be related to hyponatremia, anemia, dehydration but suspect dementia. ?- TSH unremarkable. B12 608. ?- OT evaluation with SLUMS of between 12 and 16 indicating cognitive impairment. 7. Anemia, unknown chronicity ?- Hg 9.6 from last lab values of near 12. Possibly from internal hemorrhoids per history. Declined to 8.1 without symptoms but today is 8.4. Will stop monitoring for now. Dispo: She is medically stable for discharge and awaits placement in SNF DVT: Lovenox daily Code: DNR, daughter is POA and surrogate decision maker. Time Spent With Patient Critical Care time: I spent a total of [] minutes of critical care time on this patient's care today; this time is exclusive of procedural time.
[2021-09-23] MEDS: AMOXICILLIN/CLAV 875/125 MG 1 TAB PO (20:37)
[2021-09-23] MEDS: LOSARTAN 25 MG TABLET PO (20:42)
[2021-09-23] MEDS: TRAMADOL 50 MG TABLET PO (20:43)
[2021-09-24] VITALS (9 sets, daily range): BP systolic 111–146; BP diastolic 55–67; PULSE 55–122; RESP 16–19; TEMP 36.1–36.7; O2SAT 95–98
[2021-09-24] MEDS: levoFLOXacin 250 MG TABLET 500 MG PO (06:13)
[2021-09-24] MEDS: LOSARTAN 25 MG TABLET PO ×2 (09:17→20:22)
[2021-09-24] MEDS: AMOXICILLIN/CLAV 875/125 MG 1 TAB PO (09:18)
[2021-09-24] MEDS: BACLOFEN 10 MG TABLET PO ×3 (09:18→20:22)
[2021-09-24] MEDS: ENOXAPARIN 30 MG/0.3 ML SYRINGE SUBCUT (09:20)
--- NOTE | 2021-09-24 09:47 | PC.NURSE ---
Pt alert and oriented, offers no present complaint. Is articulate expressing her needs. Took b'fast well. Settled to comfort.
--- NOTE | 2021-09-24 11:40 | OT.IP.TRT ---
Current Diagnoses Acute kidney failure, unspecified (09/18/21) Occupational Therapy Treatment Note M2 OT-IP Current Condition Start: 09/19/21 13:38 Freq: Status: Active Protocol: Document 09/19/21 12:20 [facility] (Rec: 09/19/21 14:01 [facility] [id number]) Occupational Therapy Current Condition Current Condition Evaluation Date 09/19/21 Treatment Diagnosis Sacral Ulcer, decreased mobility Diagnosis Onset Date 09/18/21 M3 OT- IP Subjective and Pain Start: 09/19/21 13:38 Freq: Status: Active Protocol: Document 09/24/21 12:17 [facility] (Rec: 09/24/21 12:24 [facility] [id number]) OT- Subjective Occupational Therapy Visit Type Type Treatment Note Visit Start Time 11:24 Visit Stop Time 11:40 Total Visit Minutes 16 Occupational Therapy Visit Comments Patient Comments Pt agreed to try to work with FINAL RAIL CUTTER/OT for sitting balance needs. Patient/Caregiver Goals To get better. OT Pain Assessment Pain When Pain Assessed At Rest Pain Present Pain Present Denied Pain M4 OT- IP ADL's Start: 09/19/21 13:38 Freq: Status: Active Protocol: Document 09/21/21 12:07 [facility] (Rec: 09/21/21 12:23 [facility] [id number]) OT ADL-Grooming General Evaluation Areas Needing Assistance Retrieving/Set-up of Grooming Items,Combing/Brushing Hair Comments OT Grooming Comments Pt able to wash her face after set-up of wash cloth. Pt able to brush the side of her hair while in bed and needing assist to brush the back of her head as pt able to sit with BENJIE. OT ADL-Dressing Comments OT Dressing Comments Total assist at this time. OT ADL-Toileting Comments OT Toileting Comments Called in nursing aid as pt needing a brief change. OT ADL-Bathing Comments OT Bathing Comments Sponge bath more appropriate at this time. M5 OT- IP IADL's Start: 09/19/21 13:38 Freq: Status: Active Protocol: Document 09/19/21 12:20 [facility] (Rec: 09/19/21 14:01 [facility] [id number]) OT-Instrumental Activities of Daily Living Home Safety Awareness Awareness of Need for Assistance at Home Decreased Awareness Ability to Problem Solve Emergency Unable to Problem Solve Situations Home Safety Comments Pt able to answer most basic emergency needs accurately but not aware what to do in case the toilet were to overflow. Medication Management Medication Management Caregiver Administers Money Management Money Management Caregiver Provides Assistance Meal Preparation Meal Preparation Caregiver Provides Assist Machine Sweeper Brush Maker Machine Sweeper Brush Maker Caregiver Provides Assist M6 OT- IP Functional Cognition Start: 09/19/21 13:38 Freq: Status: Active Protocol: Document 09/24/21 12:17 [facility] (Rec: 09/24/21 12:24 [facility] [id number]) Cognitive Factors Limiting Selfcare Function Cognitive Comments Cognitive Assessment Comments Pt able to follow simple commands. Pt not able to tell that she was having a bowel movement or needing to be changed. M7 OT- IP Mobility and Balance Start: 09/19/21 13:38 Freq: Status: Active Protocol: Document 09/24/21 12:17 [facility] (Rec: 09/24/21 12:24 [facility] [id number]) OT- Bed Mobility Assessment Supine to Sit Supine to Sit Assist Maximum Assistance,2 Person Assistance Sit to Supine Sit to Supine Assist Maximum Assistance,2 Person Assistance OT-Transfer Assessment Comments Mobility Comments HOB up MAXA X 2 to get to the edge of the bed and heavy use of green pad to assist. OT- Balance Assessment Sitting Balance and Reactions Static Sitting Balance Ability Poor Dynamic Sitting Balance Ability Poor Comments Other Balance Tests/Deviations/Treatment BENJIE to MOD A x1 for balance : while seated on the edge of the bed. M8 OT- IP Objective Assessments Start: 09/19/21 13:38 Freq: Status: Active Protocol: Document 09/19/21 12:20 [facility] (Rec: 09/19/21 14:01 [facility] [id number]) OT Gross Range of Motion Upper Extremity Range of Motion Assessment Bilaterally Impaired OT Strength Upper Extremity Strength Assessment Bilaterally Impaired OT- Coordination Assessment Comments Coordination Comments Arthritic changes in hands R>L and unable to open her right hand. M9 OT- IP Assessment and Plan Start: 09/19/21 13:38 Freq: Status: Active Protocol: Document 09/24/21 12:17 [facility] (Rec: 09/24/21 12:24 [facility] [id number]) OT Summary Assessment and Plan Potential Rehabilitation Potential Fair Analytic Complexity at Evaluation Moderate Summary OT Impairments Pain,Range of Motion,Strength, Balance,Coordination, Functional Cognition, Functional Mobility,Grooming, Toilet Transfers Progress Towards Goals Slow Progress due to Medical Issues,Slow Progress due to Activity Tolerance,Slow Progress due to Cognition Assessment Summary Able to do gentle ROM for pt's RUE and pt participated in sitting balance today. Pt still needing extensive assist for all needs. Pt would benefit from skilled rehab versus LTC at this time. Goals Self-Feeding Goal Standby Assistance Grooming Goal Standby Assistance Toilet Transfer Goal Moderate Assistance OT-Other Goals Pt to be able to sit at the edge of the bed with feet supported in order to do grooming needs with SBA for balance. Days to Meet Goals 50 Frequency of Treatment Frequency Of Treatment Once a Day Treatment Plan OT Treatment Plan ADL Training,Functional Cognition Training,Functional Mobility,Patient/Family Education,Discharge Planning Discharge Recommendations OT Discharge Recommendations SNF Rehab,LTAC Transportation Needs at Discharge Stretcher/Ambulance
--- NOTE | 2021-09-24 11:52 | PT.IPTN ---
Current Diagnoses Acute kidney failure, unspecified (09/18/21) Physical Therapy Treatment Note M2 PT-IP Current Condition Start: 09/19/21 13:02 Freq: NEEDED Status: Active Protocol: Document 09/19/21 10:46 AB (Rec: 09/19/21 13:17 AB [id number]) Physical Therapy Current Condition Current Condition Evaluation Date 09/19/21 Treatment Diagnosis sacral ulcer; generalized weakness Onset Date 09/18/21 M3 PT-IP Subjective Start: 09/19/21 13:02 Freq: NEEDED Status: Active Protocol: Document 09/24/21 11:30 KS (Rec: 09/24/21 13:52 KS [id number]) Subjective Physical Therapy Visit Type Type Treatment Note Visit Start Time 11:30 Visit Stop Time 11:52 Total Visit Minutes 22 Notes Partial co-treat w/ OT Number of EXECUTIVE SECRETARY Visits 2 Physical Therapy Visit Comments Patient Comments Pt agreeable to sitting EOB M4 PT-IP Mobility and Gait Start: 09/19/21 13:02 Freq: NEEDED Status: Active Protocol: Document 09/24/21 11:30 KS (Rec: 09/24/21 13:52 KS [id number]) PT-Bed Mobility Assessment Supine to Sit Supine to Sit Maximum Assistance,2 Person Assistance,Head of Bed Elevated Sit to Supine Sit to Supine Maximum Assistance,2 Person Assistance Scooting Scooting to Edge of Bed Dependent Scooting Up and Down in Bed Dependent PT-Transfer Assessment Comments Mobility Comments Pt in bed upon arrival and agreeable to try sitting EOB. Performed 1x5 bilateral resisted platarflexion, and dorsiflexion on LLE. Max A x2 for sup<>sit and scooting EOB. Min to Mod A and cues to lean forward to maintain seated balance. Stool placed under pts feet for support d/t height. Pt able to complete exercises EOB minimally. Max A for sit<>sup and repostioning , pt w/ bowel movement requiring Max A for logroll. Gait Assessment Comments Gait Comments Unable PT-Balance Assessment Sitting Balance and Reactions Static Sitting Balance Ability Poor Dynamic Sitting Balance Ability Poor M5 PT-IP Objective Assessments Start: 09/19/21 13:02 Freq: NEEDED Status: Active Protocol: Document 09/19/21 10:46 AB (Rec: 09/19/21 13:17 AB [id number]) Orientation Orientation/Cognition Level of Alertness Alert Language Function Ability Hard of Hearing Safety Awareness Decreased Safety Awareness Memory Description Short Term Impaired Gross Range of Motion Lower Extremity ROM Assessment Bilaterally Impaired Impairments ankle tightness Strength Lower Extremity Strength Assessment Bilaterally Impaired Comments Strength Comments LLE: 3-/5 RLE: 2-/5 M6 PT-IP Treatment Start: 09/19/21 13:02 Freq: NEEDED Status: Active Protocol: Document 09/24/21 11:30 KS (Rec: 09/24/21 13:52 KS [id number]) Physical Therapy Treatment Exercises Exercises Ankle Pumps,Seated Knee Flexion/Extension Education Education Provided Safety Other Treatments Other Treatment Performed Resisted plantar/dorsiflexion, pt w/ bilateralt LE weakness, but R>L. M7 PT-IP Assessment and Plan Start: 09/19/21 13:02 Freq: NEEDED Status: Active Protocol: Document 09/24/21 11:30 KS (Rec: 09/24/21 13:52 KS [id number]) PT Summary Assessment and Plan Potential Rehabilitation Potential Fair Summary Impairments Pain,ROM,Strength,Balance, Coordination,Sensation,Tone, Cognition,Bed Mobility, Transfers,Gait,Activity Tolerance Progress Towards Goals Slow Progress due to Medical Issues,Slow Progress due to Activity Tolerance,Slow Progress - Other Assessment Summary Pt very limited by weakness and low tolerance for activity , Requiring Max A x2 for bed mobility and Min to Mod for sitting balance while EOB. Very little use of BLE currently. She will require SNF to improve strength and functional mobility. Goals Bed Mobility Goal Moderate Assistance Transfer Goal Moderate Assistance,Front Wheeled Walker Other Goals improve sitting balance dynamic to F improve standing balance to F- Days to Meet Goals 10 Frequency of Treatment Frequency Of Treatment Once a Day Treatment Plan Physical Therapy Treatment Plan Bed Mobility Training,Transfer Training,Gait Training, Therapeutic Exercise,Balance Retraining,Discharge Planning, Hot or Cold Pack,Neuromuscular Re-ed,Coordination Retraining ,Manual Therapy Precautions Other Precautions falls; sacral wound Recommendations To Nursing Amount of Assist Needed Total Assistance,Mechanical Lift Discharge Recommendations PT Discharge Recommendations SNF Rehab Transportation Needs at Discharge Wheelchair/Cabulance,Stretcher /Ambulance
--- NOTE | 2021-09-24 13:00 | CM.DPC ---
DCP SNF/LTC planning cont: Per MD, pt remains stable for discharge to SNF for ongoing wound care and strengthening. Per Cog eval, pt scored a 12 and 16 out of 30 and shows cognitive issues but pt is not officially dx with dementia yet. CARLOS called Suzanne at [facility] and confirmed that pt was approved for SNF auth as of yesterday 09/23/21 and auth remains active at this time. SW called following SNF's already given referral and new referrals given today: [facility]- no, also no open LTC beds [facility] [employer]- no [facility]- reviewing [facility]- not [facility] preferred, decline pt at this time. [facility]- reviewing, left msg today to inquire [facility]- contracted, willing to review, faxed referral today [facility]- left msg, faxed referral [facility]- not contracted with [facility] but sometimes do one time auth, currently no LTC beds available. PASRR previously completed in anticipation of SNF. SW printed off pt's [employer] vax copy for SNF. SW received a call from [facility] Sirena Basilio ([phone]) stating she received pt's application and would like to schedule a time to complete assessment with pt. SW met bedside with pt and explained role and updated her on [facility] auth for SNF and pt acknowledges her preference is SNF rehab under [facility]. SW discussed [facility] Sirena wanting to complete assessment with her for LTC support and pt acknowledges that she likely will not ever return home, I'm going to need to stay at SNF or a facility but did not understand that [facility] does not pay for LTC just rehab and therefore she needs the assessment from [facility] and then pt was agreeable but also requested they speak with her Dtr Jessica as well to get more information. CARLOS called pt's Dtr Jessica and updated on above and she is very agreeable to complete assessment via phone with Sirena at [facility] today or tomorrow even though she is at work. SW updated on difficulty with SNF placement due to likely LTC needs and Dtr was surprised SNF rehab might even be in [place] or [place] pending accepting facility. SW also discussed [facility] vs placement at [facility] or [facility] and Dtr leaning towards out of the home but also was not aware that there may not be a local Medicaid facility to accept pt and may be farther away, at least for initial placement. CARLOS spoke to Sirena at [facility] again and updated and she confirms she left Dtr a msg and will coordinate with her for today or tomorrow and then will call to try to ask a few questions of pt maybe tomorrow. Sirena requested clinicals be faxed to [phone]. CARLOS faxed clinicals for review. Plan: CARLOS to follow closely for SNF's reviewing under [facility] and completion of [facility] assessment for LTC support. MANI Banerjee
--- NOTE | 2021-09-24 19:19 | PM.PN.1 ---
Subjective Subjective Date Patient Seen: 09/24/21 Interval history: 80-year-old female admitted to the hospital with sacral decubitus ulcer, the patient is awaiting placement she has no specific complaints Exam Vital Signs (past 8 hours): - 09/24/21 15:00 Pulse Rate 122 H Respiratory Rate 18 Blood Pressure 135/60 Pulse Oximetry 95 Oxygen Delivery Method Room Air Oxygen Flow Rate 0 Narrative Exam Narrative: Pleasant female lying in bed in no acute distress Resp Other: Lungs clear to auscultation Cardio Other: Cardiac exam: Regular rate and rhythm normal S1-S2 with a 3/6 systolic ejection murmur GI Other: Abdomen soft and nontender Extrem Other: Extremity with 2+ edema Objective Labs Result Diagrams: 09/21/21 06:36 09/23/21 05:35 [facility] Medical History Aortic stenosis Foot fracture, left Hypertension Neurogenic bladder Sciatica Trigeminal neuralgia Surgical History History of bowel resection History of carpal tunnel surgery History of hip replacement Family History (Updated 09/18/21 @ 17:36 by Lee Freire DO) Mother Hypertension Father Hypertension Social History household members: children Smoking Status: Never smoker Assessment & Plan Assessment & Plan narrative: ?Stage III and stage II sacral pressure ulcers, acute, present on admission ?- continue local wound care and dressing per nursing protocols. ?- outpatient wound care referral on discharge. ?- did not initially appear to be actively infected, however wound cultures are positive for Enterococcus/Pseudomonas/E.coli and the edges are noted to be red on 09/21. ?- started on Zosyn IV on 09/21, can transition to oral on discharge plan for likely levofloxacin and augmentin for 7 day course, will DC Zosyn ?- frequent turning and repositioning.? Easily contaminated by stool - as seen on 09/21. ?- can continue home tramadol and baclofen for pain. Try to avoid opiates or benzos for pain given age. ? 2. TASH, improving. ?- creatinine 1.36 on admission, baseline appears to be around 0.8 previously. Multiple issues with IV line will encourage PO fluids today and continue to monitor. 3. Hyponatremia, ?- likely in setting of decreased PO intake. Be cautious with fluids given aortic stenosis. - issues with IV line, will encourage PO intake and continue to monitor. Na improved to 132. 4. severe aortic stenosis ?- no current indication for repeat echo, continue home medications other than diuretic given TASH and dehydration. ?- no current shortness of breath or chest pain. 5. HTN ?- hold home diuretic as noted above. can continue home losartan. 6. Cognitive impairment, dementia. ?- daughter reports worsening confusion over the past 4 months. May be related to hyponatremia, anemia, dehydration but suspect dementia. ?- TSH unremarkable. B12 608. ?- OT evaluation with SLUMS of between 12 and 16 indicating cognitive impairment. 7. Anemia, unknown chronicity ?- Hg 9.6 from last lab values of near 12. Possibly from internal hemorrhoids per history. Declined to 8.1 without symptoms but today is 8.4. Will stop monitoring for now. Dispo: She is medically stable for discharge and awaits placement in SNF Time Spent With Patient Critical Care time: I spent a total of [] minutes of critical care time on this patient's care today; this time is exclusive of procedural time.
[2021-09-24] MEDS: AMOXICILLIN/CLAV 500/125 MG 1 TAB PO (21:30)
[2021-09-25] VITALS: BP 143/64; PULSE 73; RESP 19; TEMP 37.3; O2SAT 97
[2021-09-25 04:00] VITALS: BP 118/72; PULSE 63; RESP 16; TEMP 37; O2SAT 97
[2021-09-25 07:30] VITALS: BP 129/64; PULSE 77; RESP 21; TEMP 36.1; O2SAT 95
[2021-09-25] MEDS: LOSARTAN 25 MG TABLET PO (09:36)
[2021-09-25] MEDS: BACLOFEN 10 MG TABLET PO (09:36)
[2021-09-25] MEDS: AMOXICILLIN/CLAV 500/125 MG 1 TAB PO (09:36)
[2021-09-25] MEDS: ENOXAPARIN 30 MG/0.3 ML SYRINGE SUBCUT (09:37)
[2021-09-25 11:00] VITALS: BP 121/75; PULSE 80; RESP 21; TEMP 36.9; O2SAT 97
--- NOTE | 2021-09-25 11:16 | DIET.CONS ---
Dietary Consultation Note RD Note: RD consulted for pt with sacral ulcers this morning. RD has been sending ONS Nepro bid to support protein and would healing needs in renal friendly formula. Will continue to d/c. Electronically Signed by: Carey Lundberg 09/25/21 11:16 Clinical Dietitian [address] [address]
--- NOTE | 2021-09-25 11:48 | OT.IPNOTE ---
Pt adamant of not wanting to be seen for therapy as per pt leaving today.
--- NOTE | 2021-09-25 11:50 | PT-IP ANOTE ---
OT reported pt refused working with therapy. BREAKER BOSS arrived in pt room, pt stated upset having to go to skilled rehab so far away and is not willing to work with therapy, will be leaving at 2pm. Pt understands importance of working with therapy in hospital and at skilled rehab after provided education. BREAKER BOSS was unable to work with pt and notified nursing and care mgt.
[2021-09-25 12:10] LABS: COVID19 -Nasal RAPID Negative (Negative)
--- NOTE | 2021-09-25 14:23 | CM.DPNOTE ---
DC Note Worked on coordination of this DCP throughout the morning. According to Siomara at [facility] (who is filling in for RN NEEL Palacios today) P# [phone], patient has been authorized for 100 days at [facility][1] in [place]. They have accepted patient for admission today Confirmed above with admissions team at [facility], [place] flores Jennifer P# [phone] who did confirm and requested DC ppk, PASRR and copy of updated C19 PCR be faxed Updated Dr Ferrari who completed DC order; DC ppk faxed and receipt confirmed by JAIRO Tovar Discussed plan at length w/patient and with ray Lopez; patient appeared concerned about the geographic distance from [place] to [place] and ray Lopez was helpful in reviewing the options w/this CHANCERY CLERK ie home w/dtr today vs SNF secured in [place] BLS arranged for p/u at 1400 via [facility], updated [facility], SARAY Jaime and RN Coordinator Debbie Effort was taken by ray Lopez to secure a bed at [facility] today; Serina at [facility] had said she had beds available, however, [facility] is not a [facility] in network facility so a single case agreement would need to be reviewed by both [facility] and then signed by [facility]. Siomara at [facility] explained to this CHANCERY CLERK that a single case agreement would be unlikely because they had already secured an accepting facility in network Explained above to patient and ray Lopez who were inevitably agreeable to the following plan: Plan: DC to [facility] in [place] today, via BLS. Efforts will be ongoing, by [facility] SWer and Ray Lopez, to secure correction care for patient Talia MANI Martin
--- NOTE | 2021-09-25 14:31 | PC.NURSE ---
report given to facility. IV removed.
--- NOTE | 2021-09-25 15:11 | CM.DPNOTE ---
DCP Note LM w/ [facility] worker Sirena Chetna ([phone]) updating w/patient's disposition. JW
--- NOTE | 2021-09-27 18:03 | P.DS_ITS ---
History of Present Illness History of Present Illness Date Patient Seen: 09/25/21 Chief complaint: Worsening bottom sores T-7days Narrative: This is an 80-year-old female with a past medical history of severe aortic stenosis, hypertension, trigeminal neuralgia, and probable dementia (not diagnosed formally) who was brought into the emergency room by her daughter over increasing concerns of her sacral wound and pain.? The patient is not entirely clear of the reason that she is in the hospital for than sacral pain and is unable to provide much extended history so the remainder is gathered from chart review as well as the patient's daughter currently at bedside.? Prior notes from her PCP indicate difficulties in caring for the patient last year, with referral to home health given at that time.? Daughter ultimately decided to have the patient enter assisted living in [facility].? At around [place] time, or 4 months ago, the patient developed sacral decubitus pressure ulcers at her assisted living facility, and the daughter says states that she decided to have the patient return home.? There has been no resumption of home health, but the patient does have caregivers Thursday through Thursday to do basic things.? She has not had a home health nurse.? She has been trying to offload pressure with assistive devices but the patient has been more more difficult to move in difficult to care for at home.? The daughter denies any recent fever, chills, complaints of dysuria.? She has only had the sacral pain.? She has some chronic right lower extremity edema ever since her hip surgery approximately 6 years ago.? She has not had much mobility since that surgery anyway but since her discharge from the assisted living facility her decline has been more pronounced.? Daughter has also noted a drop in her oral intake.? For the last few days she has noticed some bright red blood in her diapers, but has known hemorrhoids. The patient currently denies any shortness of breath, chest pain, abdominal pain, nausea, or vomiting.? The daughter further reports no recent fevers.? Her only complaint at this time is of sacral discomfort, though this is improved right now and she feels fairly comfortable. In the emergency room, the patient's vital signs are unremarkable.? Laboratory evaluation revealed a mild anemia compared to prior labs with hemoglobin of 9.6.? Chemistries revealed mild hyponatremia with sodium of 128, mild TASH with a creatinine of 1.36, COVID-19 testing was negative.? DVT study was performed of her lower extremity due to swelling which did not show evidence of a DVT.? Patient was admitted under observation for further management mild hyponatremia, TASH likely due to dehydration and for assistance with placement. Discharge Providers Provider Date of admission: 09/18/21 14:16 Discharge Date: 09/25/21 Primary care physician: Juanita Herrera DO Consults: 09/18/21 12:12 Consult to [facility] [place] Manager Stat Comment: placement 09/18/21 12:21 Consult to Physical Therapy Evaluate & Treat Comment: bed sores Physician Instructions: Evaluate and Treat 09/18/21 16:51 Consult to [facility] [place] Manager Routine Comment: wants to discuss new living arrangments. OVER SHORT AND DAMAGE CLERK Consult needed for:: Community Health Res Need 09/18/21 16:54 Consult to Occupational Therapy Evaluate & Treat Comment: please do formal SLUMS, no diagnosis of dementia Physician Instructions: Evaluate and treat Consult to Physical Therapy Evaluate & Treat Comment: Physician Instructions: Evaluate and Treat 09/24/21 18:51 Consult to Dietitian, Adult Routine Comment: Reason For Exam: to promote wound healing Discharge provider: Richa Ferrari MD Summary Hospital Course Discharge Diagnosis: StAge 3 and stage II sacral decubitus ulcer, present on admission Acute kidney injury, present on admission Hyponatremia improved Severe aortic stenosis Hypertension Dementia anemia Hospital Course: Patient was admitted to the hospital with an TASH and a sacral decubitus ulcer. Ultimately it was determined she could not return home with her daughter. Patient received wound care here in the hospital. Her TASH was treated. Her hyponatremia improved. Her aortic stenosis remain the same. She was mildly confused but not combative. After an extensive period of time we were able to obtain halfway facility for her. Patient was deemed appropriate for discharge and arrangements were made to discharge her to the halfway unit. Patient was ultimately placed on Augmentin for her wound culture. Status at Discharge Cognitive/behavioral status at discharge: at baseline, confused Functional status at discharge: bed bound Exam Vital Signs (past 8 hours): Oxygen Delivery Method Room Air Oxygen Flow Rate 0 Narrative Exam Narrative: Pleasant elderly female in no acute distress Resp Other: Lungs clear to auscultation Cardio Other: Cardiac exam: Regular rate rhythm normal S1-S2 with a 3/6 systolic ejection murmur GI Other: Abdomen soft and nontender Objective Labs Result Diagrams: 09/21/21 06:36 09/23/21 05:35 [facility] Medical History Aortic stenosis Foot fracture, left Hypertension Neurogenic bladder Sciatica Trigeminal neuralgia Surgical History History of bowel resection History of carpal tunnel surgery History of hip replacement Family History (Updated 09/18/21 @ 17:36 by Lee Freire DO) Mother Hypertension Father Hypertension Social History household members: children Smoking Status: Never smoker Discharge Assessment & Plan Assessment and Plan Assessment: StAge 3 and stage II sacral decubitus ulcer, present on admission Acute kidney injury, present on admission Hyponatremia improved Severe aortic stenosis Hypertension Dementia anemia Plan of Treatment: Discharge to SNF Discharge Plan Discharge Plan Patient Disposition: SNF Other facility: [facility] Consult as needed: Dental, Hearing, Mental health, Podiatry and Vision Discharge orders & Medications Prescriptions: New acetaminophen 325 mg Tablet 975 mg PO Q8HR PRN (Reason: Pain, Moderate (4-6)) Qty: 30 0RF levofloxacin 250 mg Tablet 750 mg PO Q48H Qty: 2 0RF amoxicillin-pot clavulanate [Augmentin] 500-125 mg Tablet 1 tab PO BID Qty: 3 0RF Continued tramadol 50 mg tablet 50 mg PO BEDTIME PRN (Reason: pain) Qty: 30 0RF furosemide [Lasix] 20 mg tablet 40 mg PO DAILY Qty: 180 3RF losartan 25 mg tablet 25 mg PO BID Qty: 180 1RF potassium chloride [Klor-Con 10] 10 mEq tablet extended release 20 meq PO DAILY Qty: 180 3RF baclofen 10 mg tablet 10 mg PO TID Qty: 270 0RF (DME) Wheelchair See Rx Instructions .Route .MEDSUPPLY Qty: 1 0RF Rx Instructions: As directed (DME) four wheeled walker See Rx Instructions .Route .MEDSUPPLY Qty: 1 0RF Rx Instructions: As directed diphenhydramine HCl [Benadryl] 25 mg Capsule 25 mg PO BEDTIME PRN (Reason: Sleep) 0RF oxcarbazepine 300 mg tablet 300 mg PO BID 0RF Rx Instructions: Supposed to take 450mg, but pt doesn't like taking the half tabs, they make her choke Medication counseling provided by Pharmacist: No Follow up/Referrals: Juanita Herrera DO [Primary Care Provider] - Discharge Health Status Multidrug resistant organism: No MDRO Diet/Activity/Treatments Diet: Low-fat and Low-sodium Liquid consistency: Normal/Thin Food texture: Regular Skin/Wound/Dressing Care Report to your healthcare provider any signs of infection, such as:: chills, fever Special Rehabilitation Services Reason for rehabilitation: Recovery r/t decondition Rehab type: Physical therapy and Occupational therapy Discharge Data Primary Care Provider: Juanita Herrera
== END 2021-09-25 14:32 | DRG 682 ==
LOC: ED 13:02 → AC 14:22
PROVIDERS: Internal Medicine; Admitting Provider Internal Medicine; Emergency Provider Emergency Medicine; PCP Family Medicine; Referring Provider Emergency Medicine; Visit Provider Internal Medicine
DX: N17.9 Acute kidney failure, unspecified (principal); L89.153 Pressure ulcer of sacral region, stage 3; E87.1 Hypo-osmolality and hyponatremia; L89.312 Pressure ulcer of right buttock, stage 2; I35.0 Nonrheumatic aortic (valve) stenosis; D64.9 Anemia, unspecified; F03.90 Unspecified dementia, unspecified severity, without behavioral disturbance, psychotic disturbance, mood disturbance, and anxiety; L08.9 Local infection of the skin and subcutaneous tissue, unspecified; B95.2 Enterococcus as the cause of diseases classified elsewhere; B96.20 Unspecified Escherichia coli [E. coli] as the cause of diseases classified elsewhere; B96.5 Pseudomonas (aeruginosa) (mallei) (pseudomallei) as the cause of diseases classified elsewhere; I10 Essential (primary) hypertension; Z66 Do not resuscitate; Z20.822 Contact with and (suspected) exposure to COVID-19
CPT/HCPCS: 36415; 80048; 80053; 82607; 83605; 84145; 84443; 85025; 87040; 87070; 87075; 87077; 87186; 87205; 87635; 93971; 97110; 97162; 97166; 97530; 99283; 99284; C9803; J1650; J2543